=== PATIENT | female | born 1990 | race Caucasian/White ===

== ENCOUNTER 2019-04-07 13:16 | Emergency (ER) | payer BC ==
--- OUTSIDE RECORDS SUMMARY | 2019-04-07 13:27 | XMS REPORT ---
:1990 [facility] Address [address] [place] [address] Dr. Tsang [address] [place] [id number] Care Team Providers Name Role Phone Unavailable Unavailable Unavailable Problems This patient has no known problems. Allergies, Adverse Reactions, Alerts This patient has no known allergies or adverse reactions. Medications This patient has no known medications.
--- NOTE | 2019-04-07 14:12 | RAD REPORT ---
EXAM DESCRIPTION: CT - Head Brain Wo Cont - 04/07/2019 2:03 pm CLINICAL HISTORY: Syncope;Headache Headache, syncope, fall with head injury. COMPARISON: HEAD BRAIN W O CONTRAST dated 08/12/2012 TECHNIQUE: All CT scans are performed using dose optimization technique as appropriate and may inclu de automated exposure control or mA/KV adjustment according to patient size. FINDINGS: No intracranial hemorrhage, hydrocephalus or extra-axial fluid collection.No areas of brai n edema or evidence of midline shift. The paranasal sinuses and mastoids are clear. The calvarium is intact. IMPRESSION: No acute intracranial abnormality.
[2019-04-07 14:46] LABS: Absolute Lymphocytes (CBC) 2.8 K/uL (0.7-4.9); Basophils % 0.8 % (0-1.3); Eosinophils % 1.4 % (0-4.4); Hematocrit 40.4 % (36.0-45.0); Lymphocytes % 32.4 % (15.3-44.8); MPV 9.3 fL (7.6-11.3); Monocytes % 6.2 % (3.3-12.3); RBC Red Blood Cell Count 6.53 M/uL (3.86-4.86)
[2019-04-07 15:01] LABS: BUN Blood Urea Nitrogen 10 mg/dL (7-18); Bicarbonate 27 mmol/L (21-32); Glucose Level 99 mg/dL (74-106); Sodium Level 140 mmol/L (136-145)
[2019-04-07] MEDS ORDERED: NA CHLORIDE 0.9% 1,000 ML ONE (15:03)
[2019-04-07] MEDS ORDERED: NA CHLORIDE 0.9% 50 ML IV ONE (15:03)
[2019-04-07] MEDS ORDERED: DIPHENHYDRAMINE 50 MG/ML VIAL ONE (15:03)
[2019-04-07] MEDS ORDERED: METOCLOPRAMIDE 10 MG/2mL INJ ONE (15:03)
[2019-04-07 15:54] LABS: Urine Blood NEGATIVE (NEG); Urine Glucose NEGATIVE (NEG); Urine Protein NEGATIVE (NEG); Urine Specific Gravity 1.025 (1.005-1.030); Urine pH 6.5 (5.0-7.0)
--- NOTE | 2019-04-07 16:20 | EDPHYS ---
Physician Documentation [facility] Name: Shana Dexter Age: 28 yrs Sex: Female : 1990 Arrival Date: 04/07/2019 Time: 13:17 Bed 6 Private MD: ED Physician Suresh Collins HPI: 04/07 13:49 This 28 yrs old Female presents to ER via Wheelchair with complaints of jr8 Passed Out Prior To Arrival. 13:49 The patient has experienced syncope, lost consciousness. Onset: The symptoms/episode jr8 began/occurred acutely, today. Duration: This was a single episode, that lasted 3 minute(s). Context: the episode(s) was witnessed, Restaurant staff, occurred at a restaurant, occurred while the patient was at rest, sitting, Just prior to the episode the patient experienced headache. Associated injury: The patient did not suffer any apparent associated injury. Associated signs and symptoms: Pertinent positives: dizziness, headache. Current symptoms: headache, that is mild. The patient has not experienced similar symptoms in the past. The patient has not recently seen a physician. 13:49 Patient with history of migraines in past but is able to abort them with OTC jr8 medication. Stated that this one will not go away and while at Restaurant had syncopal episode . 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 - Social history:: Smoking status: Patient/guardian denies using tobacco. - Ebola Screening: : No symptoms or risks identified at this time. ROS: 13:49 Eyes: Negative for injury, pain, redness, and discharge, ENT: Negative for injury, jr8 pain, and discharge, Neck: Negative for injury, pain, and swelling, Cardiovascular: Negative for chest pain, palpitations, and edema, Respiratory: Negative for shortness of breath, cough, wheezing, and pleuritic chest pain, Abdomen/GI: Negative for abdominal pain, nausea, vomiting, diarrhea, and constipation, Back: Negative for injury and pain, MS/Extremity: Negative for injury and deformity, Skin: Negative for injury, rash, and discoloration. 13:49 Neuro: Positive for dizziness, syncope. Exam: 13:49 Eyes: Pupils equal round and reactive to light, extra-ocular motions intact. Lids and jr8 lashes normal. Conjunctiva and sclera are non-icteric and not injected. Cornea within normal limits. Periorbital areas with no swelling, redness, or edema. ENT: Nares patent. No nasal discharge, no septal abnormalities noted. Tympanic membranes are normal and external auditory canals are clear. Oropharynx with no redness, swelling, or masses, exudates, or evidence of obstruction, uvula midline. Mucous membranes moist. Neck: Trachea midline, no thyromegaly or masses palpated, and no cervical lymphadenopathy. Supple, full range of motion without nuchal rigidity, or vertebral point tenderness. No Meningismus. Cardiovascular: Regular rate and rhythm with a normal S1 and S2. No gallops, murmurs, or rubs. Normal PMI, no JVD. No pulse deficits. Respiratory: Lungs have equal breath sounds bilaterally, clear to auscultation and percussion. No rales, rhonchi or wheezes noted. No increased work of breathing, no retractions or nasal flaring. Abdomen/GI: Soft, non-tender, with normal bowel sounds. No distension or tympany. No guarding or rebound. No evidence of tenderness throughout. Back: No spinal tenderness. No costovertebral tenderness. Full range of motion. Skin: Warm, dry with normal turgor. Normal color with no rashes, no lesions, and no evidence of cellulitis. MS/ Extremity: Pulses equal, no cyanosis. Neurovascular intact. Full, normal range of motion. Neuro: Awake and alert, GCS 15, oriented to person, place, time, and situation. Cranial nerves II-XII grossly intact. Motor strength 5/5 in all extremities. Sensory grossly intact. Cerebellar exam normal. Normal gait. Vital Signs: 13:25 BP 133 / 88; Pulse 83; Resp 20; Temp 98.3; Pulse Ox 100% on R/A; Weight 101.15 kg; aj Height 5 ft. 4 in. (162.56 cm); 15:27 BP 138 / 98; Pulse 87; Resp 18; Pulse Ox 98% on R/A; ph 16:46 BP 127 / 86; Pulse 81; Resp 18; Temp 97.9; Pulse Ox 99% on R/A; Pain 4/10; ph 13:25 Body Mass Index 38.28 (101.15 kg, 162.56 cm) aj MDM: 13:32 Patient medically screened. [facility] 16:19 Data reviewed: vital signs, nurses notes, lab test result(s), radiologic studies, CT jr8 scan. Data interpreted: Pulse oximetry: on room air is 98 %. Interpretation: normal. Counseling: I had a detailed discussion with the patient and/or guardian regarding: the historical points, exam findings, and any diagnostic results supporting the discharge/admit diagnosis, lab results, radiology results, the need for outpatient follow up, a family practitioner, a neurologist, to return to the emergency department if symptoms worsen or persist or if there are any questions or concerns that arise at home. Response to treatment: the patient's symptoms have markedly improved after treatment, patient is well hydrated. 04/07 13:46 Order name: CBC with Diff; Complete Time: 16:46 8 04/07 13:46 Order name: Basic Metabolic Panel; Complete Time: 15:09 8 04/07 13:46 Order name: CT Head Brain wo Cont; Complete Time: 14:27 8 04/07 15:03 Order name: CBC Smear Scan; Complete Time: 16:46 EDMS 04/07 15:51 Order name: Urine Dipstick--Ancillary (enter results); Complete Time: 15:57 ms 04/07 15:51 Order name: Urine --Ancillary (enter results); Complete Time: 15:57 ms 04/07 13:46 Order name: EKG - Nurse/Tech; Complete Time: 15:07 8 04/07 13:46 Order name: EKG; Complete Time: 13:48 8 04/07 13:46 Order name: Urine Test (obtain specimen); Complete Time: 16:50 8 04/07 13:46 Order name: Urine Dipstick-Ancillary (obtain specimen); Complete Time: 16:50 [facility] 04/07 13:46 Order name: IV; Complete Time: 14:44 jr8 Administered Medications: 15:00 Drug: NS 0.9% 1000 ml Route: IV; Rate: 1000 ml; Site: right antecubital; ph 16:50 Follow up: Response: No adverse reaction; IV Status: Completed infusion ph 15:00 Drug: Benadryl 25 mg Route: IVP; Site: right antecubital; ph 16:52 Follow up: Response: No adverse reaction ph 15:02 Drug: Reglan 10 mg {Note: mixed in 50cc NS.} Route: IVP; Site: right antecubital; ph 16:53 Follow up: Response: No adverse reaction ph Disposition: 04/08 07:22 Co-signature as Attending Physician, Suresh Collins MD I agree with the assessment and kdr plan of care. Disposition: 04/07/19 16:20 Discharged to Home. Impression: Migraine. - Condition is Stable. - Discharge Instructions: Migraine Headache. - Medication Reconciliation Form, Thank You Letter, Antibiotic Education, Prescription Opioid Use, Work release form form. - Follow up: Private Physician; When: 2 - 3 days; Reason: Recheck today's complaints, Continuance of care, Re-evaluation by your physician. - Problem is new. - Symptoms have improved. Signatures: Dispatcher [employer] EDMS Shana Mims RN RN Suresh Wesley MD MD kdr Roszak, Josh, PA PA jr8 Génesis Conti RN RN ph Corrections: (The following items were deleted from the chart) 04/07 16:53 16:20 04/07/2019 16:20 Discharged to Home. Impression: Migraine. Condition is Stable. ph Forms are Medication Reconciliation Form, Thank You Letter, Antibiotic Education, Prescription Opioid Use. Follow up: Private Physician; When: 2 - 3 days; Reason: Recheck today's complaints, Continuance of care, Re-evaluation by your physician. Problem is new. Symptoms have improved. jr8
--- NOTE | 2019-04-07 16:20 | ER ---
Nurse's Notes [facility] Name: Shana Dexter Age: 28 yrs Sex: Female : 1990 Arrival Date: 04/07/2019 Time: 13:17 Bed 6 Private MD: Diagnosis: Migraine Presentation: 04/07 13:24 Presenting complaint: Patient states: "I passed out at [employer] while waiting for my aj food today at lunch. I also have a headache." Patient reports she sat down and had a syncopal episode lasting 3 or 4 minutes but maintained the ability to keep her head up. Transition of care: patient was not received from another setting of care. Onset of symptoms was April 07, 2019. Risk Assessment: Do you want to hurt yourself or someone else? Patient reports no desire to harm self or others. Initial Sepsis Screen: Does the patient meet any 2 criteria? No. Patient's initial sepsis screen is negative. Does the patient have a suspected source of infection? No. Patient's initial sepsis screen is negative. Care prior to arrival: None. 13:24 Method Of Arrival: Wheelchair 13:24 Acuity: NEEL 3 aj Triage Assessment: 13:25 General: Appears in no apparent distress. comfortable, Behavior is calm, cooperative, aj appropriate for age. Pain: Complains of pain in face. Neuro: Level of Consciousness is awake, alert, obeys commands, Oriented to person, place, time, situation, Appropriate for age Reports headache. Derm: Skin is intact, is healthy with good turgor, Skin is pink, warm \\T\\ dry. normal. 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 - Social history:: Smoking status: Patient/guardian denies using tobacco. - Ebola Screening: : No symptoms or risks identified at this time. Screenin:21 Abuse screen: Denies threats or abuse. Denies injuries from another. Nutritional ph screening: No deficits noted. Tuberculosis screening: No symptoms or risk factors identified. Fall Risk No fall in past 12 months (0 pts). No secondary diagnosis (0 pts). IV access (20 points). Ambulatory Aid- None/Bed Rest/Nurse Assist (0 pts). Gait- Weak (10 pts.). Mental Status- Oriented to own ability (0 pts). Total [place] Fall Scale indicates Low Risk Score (25-44 pts). Fall prevention measures have been instituted. Side Rails Up X 2 Placed close to Nursing Station Frequent Obs/Assesments occuring Family Present and informed to notify staff if they need to leave bedside As available Patient and Family Educated on Fall Prevention Program and strategies. Assessment: 14:00 General: Appears in no apparent distress. comfortable, obese, well groomed, Behavior is ph calm, cooperative, appropriate for age, Denies fever, feeling ill. Pain: Complains of pain in forehead and occipital area. Neuro: Level of Consciousness is awake, alert, obeys commands, Oriented to person, place, time, situation, Tacking Machine Operator are equal bilaterally Moves all extremities. Full function Speech is normal, Facial symmetry appears normal, Pupils are PERRLA, Reports blurred vision dizziness, headache frontal area, occipital area, weakness. Cardiovascular: Capillary refill < 3 seconds in bilateral fingers Patient's skin is warm and dry. Respiratory: Airway is patent Respiratory effort is even, unlabored, Respiratory pattern is regular, symmetrical. GI: Patient currently denies abdominal pain, nausea, vomiting. Derm: Skin is intact, is healthy with good turgor, Skin is pink, warm \\T\\ dry. Musculoskeletal: Circulation, motion, and sensation intact. Range of motion: intact in all extremities. 15:32 Reassessment: Patient appears in no apparent distress at this time. Patient and/or ph family updated on plan of care and expected duration. Pain level reassessed. Patient is alert, oriented x 3, equal unlabored respirations, skin warm/dry/pink. Pt resting quietly with sunglasses on and lights off, mother at bedside, VSS. 16:46 Reassessment: Patient appears in no apparent distress at this time. Patient and/or ph family updated on plan of care and expected duration. Pain level reassessed. Patient is alert, oriented x 3, equal unlabored respirations, skin warm/dry/pink. Pt d/c home w/ family Patient states feeling better. Patient states symptoms have improved. Vital Signs: 13:25 BP 133 / 88; Pulse 83; Resp 20; Temp 98.3; Pulse Ox 100% on R/A; Weight 101.15 kg; aj Height 5 ft. 4 in. (162.56 cm); 15:27 BP 138 / 98; Pulse 87; Resp 18; Pulse Ox 98% on R/A; ph 16:46 BP 127 / 86; Pulse 81; Resp 18; Temp 97.9; Pulse Ox 99% on R/A; Pain 4/10; ph 13:25 Body Mass Index 38.28 (101.15 kg, 162.56 cm) aj ED Course: 13:17 Patient arrived in ED. as 13:25 Triage completed. aj 13:25 Arm band placed on left wrist. Patient placed in an exam room. aj 13:27 Génesis Conti, RN is Primary Nurse. ph 13:31 Lucio Sewell PA is PHCP. jr8 13:31 Suresh Collins MD is Attending Physician. jr8 14:04 CT Head Brain wo Cont In Process Unspecified. EDMS 14:07 EKG done, by bench lay out technician. reviewed by Lucio QUIROZ. sm3 14:21 Patient has correct armband on for positive identification. Placed in gown. Bed in low ph position. Call light in reach. Side rails up X2. Pulse ox on. NIBP on. Door closed. Noise minimized. Warm blanket given. Head of bed elevated. 14:43 Inserted saline lock: 20 gauge in right antecubital area, using aseptic technique. ph Blood collected. 15:33 No provider procedures requiring assistance completed. ph 16:47 IV discontinued, intact, bleeding controlled, No redness/swelling at site. Pressure ph dressing applied. Administered Medications: 15:00 Drug: NS 0.9% 1000 ml Route: IV; Rate: 1000 ml; Site: right antecubital; ph 16:50 Follow up: Response: No adverse reaction; IV Status: Completed infusion ph 15:00 Drug: Benadryl 25 mg Route: IVP; Site: right antecubital; ph 16:52 Follow up: Response: No adverse reaction ph 15:02 Drug: Reglan 10 mg {Note: mixed in 50cc NS.} Route: IVP; Site: right antecubital; ph 16:53 Follow up: Response: No adverse reaction ph Outcome: 16:20 Discharge ordered by . jr8 16:47 Discharged to home ambulatory, with family. ph 16:47 Condition: improved 16:47 Discharge instructions given to patient, Instructed on discharge instructions, follow up and referral plans. Demonstrated understanding of instructions, follow-up care. 16:53 Patient left the ED. ph Signatures: Dispatcher [employer] Shana Lindsey RN RN aj Martinez, Amelia as Roszak, Josh, PA PA jr8 Génesis Conti RN RN ph Montes, Shakira 3
--- NOTE | 2019-04-07 16:22 | EKG ---
Test Date: 2019-04-07 Test Time: 13:55:47 Showcase Trimmer: SANGEETA MEASUREMENT RESULTS: Intervals: Rate: 79 MN: 126 QRSD: 78 QT: 378 QTc: 433 [place]: P: 13 MN: 126 QRS: 22 T: 7 INTERPRETIVE STATEMENTS: Normal sinus rhythm Normal ECG No previous ECG available for comparison Electronically Signed On 04-07-19 16:21:19 CDT by Crow Medeiros
[2019-04-07 16:43] LABS: Anisocytosis 1+; Blood Morphology Comment NOTED (NOT SEEN); Hypochromasia 1+; Macrocytosis 1+; Ovalocytes 1+; Platelet Estimate ADEQ; Urine White Blood Cell Casts OK
[2019-04-07 18:45] VITALS: BP 127/86; TEMP 97.9; O2SAT 99
== END 2019-04-07 16:53 | disposition home or self-care (01) ==
LOC: ER 13:16
DX: G43.909 Migraine, unspecified, not intractable, without status migrainosus (principal); Z88.0 Allergy status to penicillin
CPT/HCPCS: 36415; 70450; 80048; 81003; 81025; 85025; 93005; 96361; 96374; 96375; 99284; J2765; J7030

== ENCOUNTER 2019-06-17 10:00 | Day surgery (SDC) | payer BC ==
--- OUTSIDE RECORDS SUMMARY | 2019-06-17 10:40 | XMS REPORT ---
:1990 [facility] [address] [place] [address] Dr. Tsang [address] [place] [address] Care Team Providers Name Role Phone Unavailable Unavailable Unavailable Problems This patient has no known problems. Allergies, Adverse Reactions, Alerts This patient has no known allergies or adverse reactions. Medications This patient has no known medications.
[2019-06-17] MEDS ORDERED: D5 0.45 NS 1,000 ML IV SCH (11:00)
[2019-06-17 13:20] VITALS: O2SAT 99; BMI 37.9
[2019-06-17 13:24] VITALS: BP 135/90; TEMP 98
== END 2019-06-17 11:52 | disposition home or self-care (01) ==
LOC: DS 10:00
PROVIDERS: ATTEND Internal Medicine
DX: G43.901 Migraine, unspecified, not intractable, with status migrainosus (principal)
CPT/HCPCS: 96365; 96366

== ENCOUNTER 2022-07-19 08:47 | Emergency (ER) | payer BC, OTHER ==
--- OUTSIDE RECORDS SUMMARY | 2022-07-19 08:54 | XMS REPORT | Continuity of Care Document ---
:1990 Author Organization [facility] t Address [address] [place] [address] Care Team Providers Name Role Phone Vi Jeong Primary Care Physician Vi Jeong Attending Clinician Unavailable Carlos Sam Attending Clinician Unavailable Julito Gilmore Attending Clinician Unavailable Meg Weir CNM Attending Clinician Unavailable Leti Leija CNM Attending Clinician Unavailable JARAD Attending Clinician Unavailable Doctor Unassigned, [place] Attending Clinician Unavailable Maggie Phillip MD Attending Clinician MAGGIE PHILLIP Attending Clinician Unavailable Simba Boyer MD Attending Clinician Lab, Adc Fam Pob I Attending Clinician Unavailable Gisel Dang PA-C Attending Clinician 2, [facility] Lab Attending Clinician Unavailable Carlos Sam Admitting Clinician Unavailable Meg Weir CNJose Admitting Clinician Unavailable Leti Leija CNM Admitting Clinician Unavailable JARAD Admitting Clinician Unavailable Payers Payer Name Policy Type Policy Number Effective Date Expiration Date S arie [facility] - [id number] 2018 2021 00:00:0 0 OUT OF STATE 00:00:00 Problems Condition Condition Condition Status Onset Resolution Last Treating Co mments Source Name Details Category Date Date Treatment Clinician Date Menorrhagi Menorrhagi Disease Active U nivers a with a with 2-22 [place] irregular irregular [place] Decreased Decreased Disease Active Uni vers range of range of 8-17 [place]y of motion of motion of 00:[place] right right 00 Medical wrist wrist Branch Decreased Decreased Disease Active Uni vers range of range of 8-17 ity of motion of motion of 00:[place] finger of finger of 00 Medi vanessa right hand right hand Br anch Decreased Decreased Disease Active Uni vers activities activities 8-17 it y of of daily of daily 00:00: [place] living living 00 Medical (ADL) (ADL) Branch Complex Complex Disease Active Univers tear of tear of 8-09 ity of triangular triangular [place] fibrocarti fibrocarti 00 Me dical sergio of sergio of Branch wrist wrist Obesity Obesity Disease Active Univers (BMI (BMI 5-26 ity of 30-39.9) 30-39.9) 00:00: Medical Branch Abnormal Abnormal Disease Active Unive rs liver liver 5-20 ity of enzymes enzymes 00:00: Medical Branch Asymptomat Asymptomat Disease Active U nivers ic ic 5-05 ity of hypertensi hypertensi [place] ve urgency ve urgency 00 Me dical Branch Anxiety, Anxiety, Disease Active Unive rs generalize generalize 5-05 it y of d d 00:00: Medical Branch S/P S/P Disease Active Univers cholecyste cholecyste 5-05 it y of ctomy ctomy 00:00: Medical Branch Abnormal Abnormal Disease Active Unive rs menstrual menstrual 5-05 ity of cycle cycle 00:00: Medical Branch Vaginal Vaginal Disease Active Univers discharge discharge 5-05 ity of 00:00: Medical Branch Abnormal Abnormal Disease Active Unive rs uterine uterine 5-05 ity of bleeding bleeding 00:00: [place] 00 Medical Branch PALAFOX PALAFOX Disease Active Univers (nonalcoho (nonalcoho 5-05 it y of lic lic 00:00: [place] steatohepa steatohepa 00 Me dical titis) titis) Branch Chronic Chronic Disease Active Univers wrist wrist 5-05 ity of pain, pain, 00:00: [place] right right 00 Medical Branch Pre-eclamp Pre-eclamp Disease Active U nivers soco, soco, 5-05 ity of antepartum antepartum 00:00: [place] Chronic Chronic Disease Active Univers wrist wrist 5-05 ity of pain, pain, 00:00: [place] right right 00 Medical Branch Morbid Morbid Disease Active Univers obesity obesity 08 ity of 00:00: [place] 00 Medical Branch High-risk High-risk Disease Active Uni vers 08 ity of in first in first 00:00: [place] trimester trimester 00 [facility] Branch Elevated Elevated Disease Active Unive rs BP without BP without 08 it y of diagnosis diagnosis 00:00: [place] of of Medical hypertensi hypertensi Br anch on on Allergies, Adverse Reactions, Alerts Allergy Allergy Status Severity Reaction(s) Onset Inactive Treating Comm ents Source Name Type Date Date Clinician Penicill DA Active SV [facility] ins 1-13 Clear 00:00: [place] 00 [facility] Penicill DA Active SV rash [facility] ins 1-13 Clear 00:00: [place] 00 [facility] Amoxicil Propensi Active Swelling 2019-0 Univ ers jeannie ty to 08 ity of adverse 00:00: [place] reaction 00 Medical s Branch Penicill Drug Active Swelling 2019-0 Univer s in Allergy 08 ity of 00:00: [place] 00 Medical Branch AMOXICIL DRUG Active Rash 2020-0 Univers JEANNIE INGREDI 08 ity of 00:00: [place] 00 Medical Branch PENICILL DRUG Active Rash 2020-0 Univers IN INGREDI 08 ity of 00:00: [place] 00 Medical Branch Social History Social Habit Start Date Stop Date Quantity Comments Source Exposure to Not sure [facility] SARS-CoV-2 [place] Medical (event) Branch ASSERTION [facility] Alcohol intake 2021-12-11 2021-12-11 Ex-drinker [facility] 00:00:00 00:00:00 (finding) [facility] Tobacco use and 2020-04-26 2020-04-26 Smokeless tobacco Un iversity of exposure 00:00:00 00:00:00 non-user [facility] Sex Ass[birth year] At [birth year] Universit y of 00:00:00 00:00:00 [facility] Smoking Status Start Date Stop Date Source Never smoked tobacco [facility] Medications Ordered Filled Start Stop Current Ordering Indication Dosage Frequency Signature Comments Components Source Medication Medication Date Date Medication? Clinician (SIG) Name Name Estradiol Yes [id number] 1{tbl} Take 1 U nivers Valerate-Di 2-22 tablet by ity of enogest 00:00: mouth [place] (NATAZIA) 3 00 daily. Medica l mg/2 mg-2 Branch mg/ 2 mg-3 mg/1 mg Tab Estradiol Yes [id number] 1{tbl} Take 1 U nivers Valerate-Di 2-22 tablet by ity of enogest 00:00: mouth [place] (NATAZIA) 3 00 daily. Medica l mg/2 mg-2 Branch mg/ 2 mg-3 mg/1 mg Tab Estradiol Yes [id number] 1{tbl} Take 1 U nivers Valerate-Di 2-22 tablet by ity of enogest 00:00: mouth [place] (NATAZIA) 3 00 daily. Medica l mg/2 mg-2 Branch mg/ 2 mg-3 mg/1 mg Tab Estradiol Yes [id number] 1{tbl} Take 1 U nivers Valerate-Di 2-22 tablet by ity of enogest 00:00: mouth [place] (NATAZIA) 3 00 daily. Medica l mg/2 mg-2 Branch mg/ 2 mg-3 mg/1 mg Tab cetirizine 2020-10 Yes [id number] 10mg Take 1 Univers (ZYRTEC) 10 2-27 tablet by ity of mg tablet 00:00: mouth [place] 00 daily. Medical Branch benzonatate 2020-10 Yes [id number] 200mg Take 2 Univers 100 mg 2-27 capsules ity of capsule 00:00: [place] mouth 2 [place] 00 (two) Medical times Branch daily as needed for Cough. guaiFENesin 2020-10 Yes [id number] 400mg Take 1 Univers 400 mg 2-27 tablet by ity of tablet 00:00: mouth [place] 00 every 4 Medical (four) Branch hours as needed for Cough. albuterol 2020-10 Yes [id number] 2{puff} Inhale 2 Univers 90 2-27 Puffs ity of mcg/actuati 00:00: every 6 [place] on inhaler 00 (six) Medical hours as Branch needed for Shortness of Breath. azelastine 2020-10 Yes [id number] 1{spray Use 1 Univers 137 mcg 2-27 } [place] in ity of (0.1 %) 00:00: each [place] nasal spray 00 nostril 2 Med ical (two) Branch times daily. Use in each nostril as directed fluticasone 2020-10 Yes [id number] 1{spray Use 1 Univers propionate 2-27 } [place] in ity o f 50 00:00: each [place] mcg/actuati 00 nostril Medic al on nasal daily. Branch spray cetirizine 2020-10 Yes [id number] 10mg Take 1 Univers (ZYRTEC) 10 2-27 tablet by ity of mg tablet 00:00: mouth [place] 00 daily. Medical Branch benzonatate 2020-10 Yes [id number] 200mg Take 2 Univers 100 mg 2-27 capsules ity of capsule 00:00: [place] mouth 2 [place] 00 (two) Medical times Branch daily as needed for Cough. guaiFENesin 2020-10 Yes [id number] 400mg Take 1 Univers 400 mg 2-27 tablet by ity of tablet 00:00: mouth [place] 00 every 4 Medical (four) Branch hours as needed for Cough. albuterol 2020-10 Yes [id number] 2{puff} Inhale 2 Univers 90 2-27 Puffs ity of mcg/actuati 00:00: every 6 [place] on inhaler 00 (six) Medical hours as Branch needed for Shortness of Breath. azelastine 2020-10 Yes [id number] 1{spray Use 1 Univers 137 mcg 2-27 } [place] in ity of (0.1 %) 00:00: each [place] nasal spray 00 nostril 2 Med ical (two) Branch times daily. Use in each nostril as directed fluticasone 2020-10 Yes [id number] 1{spray Use 1 Univers propionate 2-27 } [place] in ity o f 50 00:00: each [place] mcg/actuati 00 nostril Medic al on nasal daily. Branch spray cetirizine 2020-10 Yes [id number] 10mg Take 1 Univers (ZYRTEC) 10 2-27 tablet by ity of mg tablet 00:00: mouth [place] 00 daily. Medical Branch benzonatate 2020-10 Yes [id number] 200mg Take 2 Univers 100 mg 2-27 capsules ity of capsule 00:00: [place] mouth 2 [place] 00 (two) Medical times Branch daily as needed for Cough. guaiFENesin 2020-10 Yes [id number] 400mg Take 1 Univers 400 mg 2-27 tablet by ity of tablet 00:00: mouth [place] 00 every 4 Medical (four) Branch hours as needed for Cough. albuterol 2020-10 Yes [id number] 2{puff} Inhale 2 Univers 90 2-27 Puffs ity of mcg/actuati 00:00: every 6 [place] on inhaler 00 (six) Medical hours as Branch needed for Shortness of Breath. azelastine 2020-10 Yes [id number] 1{spray Use 1 Univers 137 mcg 2-27 } [place] in ity of (0.1 %) 00:00: each [place] nasal spray 00 nostril 2 Med ical (two) Branch times daily. Use in each nostril as directed fluticasone 2020-10 Yes [id number] 1{spray Use 1 Univers propionate 2-27 } [place] in ity o f 50 00:00: each [place] mcg/actuati 00 nostril Medic al on nasal daily. Branch spray cetirizine 2020-10 Yes [id number] 10mg Take 1 Univers (ZYRTEC) 10 2-27 tablet by ity of mg tablet 00:00: mouth [place] 00 daily. Medical Branch benzonatate 2020-10 Yes [id number] 200mg Take 2 Univers 100 mg 2-27 capsules ity of capsule 00:00: [place] mouth 2 [place] 00 (two) Medical times Branch daily as needed for Cough. guaiFENesin 2020-10 Yes [id number] 400mg Take 1 Univers 400 mg 2-27 tablet by ity of tablet 00:00: mouth [place] 00 every 4 Medical (four) Branch hours as needed for Cough. albuterol 2020-10 Yes [id number] 2{puff} Inhale 2 Univers 90 2-27 Puffs ity of mcg/actuati 00:00: every 6 [place] on inhaler 00 (six) Medical hours as Branch needed for Shortness of Breath. azelastine 2020-10 Yes [id number] 1{spray Use 1 Univers 137 mcg 2-27 } [place] in ity of (0.1 %) 00:00: each [place] nasal spray 00 nostril 2 Med ical (two) Branch times daily. Use in each nostril as directed fluticasone 2020-10 Yes [id number] 1{spray Use 1 Univers propionate 2-27 } [place] in ity o f 50 00:00: each [place] mcg/actuati 00 nostril Medic al on nasal daily. Branch spray methylPREDN 2020-10 Yes FOLLOW Univ ers ISolone 4 2-19 PACKAGE ity of mg tablets 00:00: [place]RE[place] methylPREDN 2020-10 Yes FOLLOW Univ ers ISolone 4 2-19 PACKAGE ity of mg tablets 00:00: DI[place]CTIONS [place] [facility] [place] methylPREDN 2020-10 Yes FOLLOW Univ ers ISolone 4 2-19 PACKAGE ity of mg tablets 00:00: DIRECTIONS [place] Medical Branch methylPREDN 2020-10 Yes FOLLOW [facility] ers ISolone 4 2-19 PACKAGE ity of mg tablets 00:00: DIRECTIONS [place] Medical Branch NATAZIA 3 2020-10- No [id number] 1{tbl} TAKE 1 Univers mg/2 mg-2 -24 - TABLET BY ity of mg/ 2 mg-3 00:00: 00:00 MOUTH [place] mg/1 mg Tab 00 :00 DAILY Medical Branch Diclofenac Yes [id number] Apply to Univers Sodium 8-06 [id number] area(s) 4 ity of (VOLTAREN) 00:00: (four) [place] 1 % gel 00 times Medical daily. Branch Apply 4 g qid hydrOXYzine Yes [id number] 50mg Take 2 Univers 25 mg 8-06 tablets by ity of tablet 00:00: mouth [place] 00 every 8 Medical (eight) Branch hours as needed for Itching or Anxiety. lisinopriL- 2020-0 Yes [id number] 1{tbl} Take 1 Univers hydrochloro 8-06 tablet by ity of thiazide 00:00: mouth [place] 10-12.5 mg 00 daily. Medical per tablet Branch Diclofenac 2020-0 Yes [id number] Apply to Univers Sodium 8-06 [id number] area(s) 4 ity of (VOLTAREN) 00:00: (four) [place] 1 % gel 00 times Medical daily. Branch Apply 4 g qid hydrOXYzine 2020-0 Yes [id number] 50mg Take 2 Univers 25 mg 8-06 tablets by ity of tablet 00:00: mouth [place] 00 every 8 Medical (eight) Branch hours as needed for Itching or Anxiety. lisinopriL- 2020-0 Yes [id number] 1{tbl} Take 1 Univers hydrochloro 8-06 tablet by ity of thiazide 00:00: mouth [place] 10-12.5 mg 00 daily. Medical per tablet Branch Diclofenac 2020-0 Yes [id number] Apply to Univers Sodium 8-06 [id number] area(s) 4 ity of (VOLTAREN) 00:00: (four) [place] 1 % gel 00 times Medical daily. Branch Apply 4 g qid hydrOXYzine 2020-0 Yes [id number] 50mg Take 2 Univers 25 mg 8-06 tablets by ity of tablet 00:00: mouth [place] 00 every 8 Medical (eight) Branch hours as needed for Itching or Anxiety. lisinopriL- 2020-0 Yes [id number] 1{tbl} Take 1 Univers hydrochloro 8-06 tablet by ity of thiazide 00:00: mouth [place] 10-12.5 mg 00 daily. Medical per tablet Branch Diclofenac 2020-0 Yes [id number] Apply to Univers Sodium 8-06 [id number] area(s) 4 ity of (VOLTAREN) 00:00: (four) [place] 1 % gel 00 times Medical daily. Branch Apply 4 g qid hydrOXYzine 1-0 Yes [id number] 50mg Take 2 Univers 25 mg 8-06 tablets by ity of tablet 00:00: mouth [place] 00 every 8 Medical (eight) Branch hours as needed for Itching or Anxiety. lisinopriL- 2021-0 Yes [id number] 1{tbl} Take 1 Univers hydrochloro 8-06 tablet by ity of thiazide 00:00: mouth [place] 10-12.5 mg 00 daily. Medical per tablet Branch NIFEdipine 2020- Yes [id number] 30mg Take 1 Univers ER 30 mg 5-05 tablet by ity of tablet 00:00: mouth [place] 00 daily. Medical Branch NIFEdipine 2020- Yes [id number] 30mg Take 1 Univers ER 30 mg 5-05 tablet by ity of tablet 00:00: mouth [place] 00 daily. Medical Branch NIFEdipine 2020-0 Yes [id number] 30mg Take 1 Univers ER 30 mg 5-05 tablet by ity of tablet 00:00: mouth [place] 00 daily. Medical Branch NIFEdipine Yes [id number] 30mg Take 1 Univers ER 30 mg 5-05 tablet by ity of tablet 00:00: mouth [place] 00 daily. [facility] Branch Immunizations Ordered Filled Immunization Date Status Comments [facility] e Immunization Name Name SARS-COV-2 COVID-19 2021-01-22 Completed Unive rsity of ANTHONY/J&J VACCINE 00:00:00 [facility] SARS-COV-2 COVID-19 2021-01-22 Completed Unive rsity of ANTHONY/J&J VACCINE 00:00:00 [facility] SARS-COV-2 COVID-19 2021-01-22 Completed Unive rsity of ANTHONY/J&J VACCINE 00:00:00 [facility] SARS-COV-2 COVID-19 2021-01-22 Completed Unive rsity of ANTHONY/J&J VACCINE 00:00:00 [facility] SARS-COV-2 COVID-19 2021-01-01 Completed Unive rsity of ANTHONY/J&J VACCINE 00:00:00 [facility] SARS-COV-2 COVID-19 2021-01-01 Completed Unive rsity of ANTHONY/J&J VACCINE 00:00:00 [facility] SARS-COV-2 COVID-19 2021-01-01 Completed Unive rsity of ANTHONY/J&J VACCINE 00:00:00 [facility] SARS-COV-2 COVID-19 2021-01-01 Completed Unive rsity of ANTHONY/J&J VACCINE 00:00:00 [facility] TDAP 2019 Completed University of 00:00:00 [place] [facility] TDAP 2019 Completed University of 00:00:00 [place] [facility] TDAP 2019 Completed University of 00:00:00 [place] [facility] TDAP 2019 Completed University of 00:00:00 [place] [facility] TDAP 2019 Completed University of 00:00:00 [place] [facility] TDAP 2019 Completed University of 00:00:00 [facility] Vital Signs Vital Name Observation Time Observation Value Comments Source Systolic blood 2021-12-11 19:37:00 118 mm[Hg] Univer sity of pressure [facility] Branch Diastolic blood 2021-12-11 19:37:00 85 mm[Hg] Unive rsity of pressure [facility] Branch Heart rate 2021-12-11 19:37:00 101 /min Universi ty of [facility] Body temperature 2021-12-11 19:37:00 36.89 Rad[facility] Respiratory rate 2021-12-11 19:37:00 18 /min [facility] ersity of [facility] Body height 2021-12-11 19:37:00 162.6 cm Universi ty of [place] [facility] Body weight 2021-12-11 19:37:00 102.513 kg Universi ty of [place] [facility] BMI 2021-12-11 19:37:00 38.79 kg/m2 Universi ty of [place] [facility] Systolic blood 2021-02-09 15:03:00 140 mm[Hg] Univer sity of pressure [facility] Branch Diastolic blood 2021-02-09 15:03:00 94 mm[Hg] Unive rsity of pressure [facility] Branch Heart rate 2021-02-09 14:57:00 96 /min Universi ty of [place] [facility] Body height 2021-02-09 14:57:00 162.6 cm Universi ty of [place] [facility] Body weight 2021-02-09 14:57:00 99.791 kg Universi ty of [facility] Branch BMI 2021-02-09 14:57:00 37.76 kg/m2 Universi ty of [facility] Branch Procedures Procedure Date / Time Performing Clinician Source Performed AUTHORIZATION FOR 2022-04-17 05:01:00 Doctor Unassigned, No Univ [facility] RELEASE OF PHI Name Medical Branch AUTHORIZATION FOR 2022-03-26 05:01:00 [facility] Name Medical Branch CONSENT FOR 2021-12-11 06:01:00 [facility]assigned, No [facility] Branch [id number] 2020-11-07 00:00:00 GELDA [facility] [id number] 2020-11-02 [id number] 2020-11-02 00:00:00 [facility] [id number] 2020-11-02 00:00:00 [facility] [id number] 2020-11-02 00:00:00 [facility] [id number] 2020-11-02 00:00:00 [facility] [id number] 2020-11-02 00:00:00 [facility] Plan of Care Planned Activity Planned Date Details Comments Source Future Scheduled 2029 DTaP,Tdap,and Td Univers ity [facility] Test 00:00:00 Vaccines (2 - Td) Medical Br anch [code = DTaP,Tdap,and Td Vaccines (2 - Td)] Future Scheduled 2029 DTaP,Tdap,and Td Univers ity [facility] Test 00:00:00 Vaccines (2 - Td) Medical Br anch [code = DTaP,Tdap,and Td Vaccines (2 - Td)] Future Scheduled 2023-04-26 Screening for University [facility] Test 00:00:00 malignant neoplasm Medical B ranch of cervix (procedure) [code = 866929013] Future Scheduled 2023-04-26 Screening for University [facility] Test 00:00:00 malignant neoplasm Medical B ranch of cervix (procedure) [code = 795311481] Future Scheduled 2022-02-21 Depression screening Uni versity [facility] Test 00:00:00 (procedure) [code = Medical Branch [id number]] Future Scheduled 2022-02-21 Depression screening Uni versity [facility] Test 00:00:00 (procedure) [code = Medical Branch [id number]] Future Scheduled 2021-06-20 INFLUENZA VACCINE Univer sity [facility] Test 00:00:00 (Season Ended) [code Medical Branch = INFLUENZA VACCINE (Season Ended)] Future Scheduled 2021-06-20 INFLUENZA VACCINE [facility] Test 00:00:00 (Season Ended) [code Medical Branch = INFLUENZA VACCINE (Season Ended)] Future Scheduled 2008 [facility]00 (COVID-19) Vaccine Medical B ranch (1) [code = SARS-CoV-2 (COVID-19) Vaccine (1)] Future Scheduled 2008 [facility] 00:00:00 (COVID-19) Vaccine Medical B ranch (1) [code = SARS-CoV-2 (COVID-19) Vaccine (1)] Encounters Start End Encounter Admission Attending Care Care Encounter Source Date/Time Date/Time Type Type Clinicians Facility Department ID 2022-05-27 Outpatient Winn, STLMLC STLMLC [id number] Common 08:25:01 [place] [id number] [facility] 2022-04-29 Outpatient Winn, STLMLC STLMLC [id number] Common 08:32:00 [place] [id number] [facility] 2022-03-27 Outpatient Winn, STLMLC STLMLC [id number] Common 13:39:00 [place] [id number] [facility] 2022-01-17 Outpatient Winn, STLMLC STLMLC [id number] Common 15:52:00 Vi [facility] 2021-11-14 Outpatient Winn, STLMLC STLMLC [id number] Common 11:24:25 [place] [id number] [facility] 2020-11-01 Inpatient EM Flaco, [facility] LD [id number] [facility] 16:40:00 Carlos 58 [facility] 2020-10-20 Inpatient CHRIS Gilmore [facility] CL45 [id number] [facility] 00:11:00 Brockmashiraz 13 [facility] 2020-10-02 Inpatient [place], [facility] MARIELOS [id number] H[facility] 11:38:00 Meg 22 [facility] 2020-09-22 Inpatient CHRIS Leija [facility] CL45 [id number] [facility] 09:52:00 Leti 02 [facility] 2022-04-30 2022-04-30 Outpatient JARAD MARTINI [facility] [id number] [place] 11:48:00 11:48:00 0712 da [facility] 2022-04-17 2022-04-17 Orders Doctor TORREZ [id number] Univers 00:00:00 00:00:00 Only Unassigned, KITTY [id number] ity of [place] [facility] [id number] [place] [phone] [address] 2022-03-26 2022-03-26 Orders Doctor SHAN [id number] Univers 00:00:00 00:00:00 Only Unassigned, KITTY [id number] ity of [place] [facility] [id number] [place] as [phone] [address] 2021-12-11 2021-12-11 Office Adum, [facility] [id number] Univers 13:30:00 14:27:30 Visit Maggie MUNOZ [id number] ity [facility] [id number] [place] [phone] [address] 2021-12-11 2021-12-11 Outpatient R ADUM, [facility] [id number] Univers 13:30:00 14:27:30 MAGGIE dorantes of [facility] 2021-12-11 2021-12-11 Orders Doctor TORREZ [id number] Univers 00:00:00 00:00:00 Only Unassigned, KITTY [id number] ity of [place] [facility] [id number] Cal[place] as [phone] [address] 2021-10-31 2021-10-31 Outpatient R [facility] [id number] Univers 13:20:00 13:20:00 ity of [facility] 2020-11-02 2020-11-02 Outpatient SHAWNEE Sam LABO [id number] [facility] 15:01:00 15:01:00 Carlos 67 [facility] 2020-10-02 2020-10-02 Outpatient [place], MEHNAZCL LABO [id number] [facility] 14:56:00 14:56:00 Meg Cast [facility] 2020-09-08 2020-09-08 Outpatient CHRIS Leija, [facility] CL45 [id number] [facility] 12:26:00 12:26:00 Leti 70 [facility] 2020-06-03 2020-06-03 Orders Doctor SHAN [id number] 00:00:00 00:00:00 Only Unassigned, KITTY [id number] [place] [facility] [id number] [id number] 009 2020-05-10 2020-05-10 Orders Doctor SHAN [id number] 00:00:00 00:00:00 Only Unassigned, KITTY [id number] [place] [facility] 4.2.7.2.686 [id number] 009 2020-05-04 2020-05-04 Laboratory Lab, [facility] [id number] 07:05:12 07:25:12 Only Fam [facility] [id number] [place] 4.2.7.2.686 Professio [phone] nal [address] 2020-05-04 2020-05-04 Letter Doctor SHAN 1.2.840.114 [id number] 00:00:00 00:00:00 (Out) Unassigned, KITTY [id number] [place] [facility] 4.2.7.2.686 [id number] [id number] 2020-05-04 2020-05-04 Letter Doctor SHAN 1.2.840.114 [id number] 00:00:00 00:00:00 (Out) Unassigned, KITTY [id number] [place] [facility] 4.2.7.2.686 [id number] 044 2020-05-03 2020-05-03 [facility] 1.2.840.114 [id number] 00:00:00 00:00:00 Gisel Munoz [id number] [place] 4.2.7.2.686 [facility] [phone] [facility] 134 [facility] 2020-04-26 2020-04-26 Battery Installer 2, Adc Lab [facility] 1.2.840.114 [id number] 15:20:39 15:35:39 Visit Elijah [id number] [place] [id number] [facility] [phone] [facility] 353 [facility] Results Test Description Test Time Test Comments Results Result Comments Source GALLBLADDER 2020-11-08 15:56:00 Test Item Value Reference Range Interpretation Comme nts GALLBLADDER RUN DATE: (test code = 11/08/20 [facility] PAGE 1 RUN TIME: 1556 Specimen Inquiry RUN USER: INTERFACE [employer]) PATIENT: MI VASQUEZ ACCT #: [id number] LOC: DeanaPPU U #: [id number] AGE/SX: 30/F ROOM: [place]2015 RE11/01/20REG DR: Malcom Sam MD : 89 BED: A DIS: STATUS: ADM IN TLOC: SPEC #: [id number] RECD: STATUS: SHIVAM CARRILLO #: [id number] FREDIS: 11/07/20- SUBM DR: Carlos Sam MD ENTERE SP TYPE: GALLBLADD OTHR DR: Paul Bolton MD ORDERED: GROSS COPIES TO: Paul Bolton MD 3 [address] [address] [place] [id number] Carlos Sam MD [address] [place] [address] MARKERS: ABNORMAL TISSUE, GALLBLADDER PROCEDURES: GROSS (11/08/20-121) TISSUE S: GALLBLADDER, NOS CLINICAL HISTORY COLLECTION DATE: 11/07/20 FINAL DIAGNOSIS Gallbladder, valentina cystectomy: CHRONIC CHOLECYSTITIS CHOLELITHIASIS NEGATIVE FOR MALIGNANCY RRB/sm A [id number] MACROSCOPIC The specimen is received in formalin labeled with the patient's name, "gallbladder" and consists o f an intact gallbladder with a smooth nance-pink serosal surface. The specimen measures 6.0 cm in length wi th diameter up to 2.2 cm. A 1.2 cm segment of duct is present. No lymph node is identified in the neck of the gallbladder. The lumen contains green bile and a few very small fragments of brown calculus material that measure up to 0.1 cm in CONTINUED ON NEXT PAGE RUN DATE: 11/08/20 [place] - Lab PAGE 2 RUN TIME: 1556 Specimen Inquiry RUN USER: INTERFACE SPEC #: [id number] PATIENT: MI VASQUEZ #[id number] (Continued) MACROSCOPIC (Continued) diam eter. The mucosal surface is dark pink-nance and smooth. The gallbladder wall measures up to 0.15 cm in ickness. No focal lesions are seen. Director Of Rehabilitation tissue is submitted in a single cassette. GROSS PERFO RMED AT [facility] [address] [place] [phone] MICROSCOPIC All of the stains, including any controls performed, stain appropriate ly. MICROSCOPIC PERFORMED AT [facility] [address] [place] [address] [phone])[phone] PERFORMING SITE Diagnosis performed at: [facility] [address] [place] [address] Signed SIGNATURE ON FILE Daren Torre MD 11/08/20 1556 END OF REPORT CBC W/AUTO [id number] 07:18:00 Test Item Value Reference Range Interpretation Comments WHITE BLOOD CELL (test 14.6 K/mm3 4.5-12.5 H code = WBC) RED BLOOD CELL (test 5.30 mill/mm3 3.7-5.2 H code = RBC) HEMOGLOBIN (test code 10.7 gram/dL 11.5-15.5 L = HGB) HEMATOCRIT (test code 35.3 % 36.0-46.0 L = HCT) MEAN CELL VOLUME (test 66.6 fL 80-98 L code = MCV) MEAN CELL HGB (test 20.2 picogram 27.0-33.0 L code = MCH) MEAN CELL HGB 30.3 gram/dL 33.0-36.0 L CONCETRATION (test code = MCHC) RED CELL DISTRIBUTION 16.3 % 11.6-16.2 H WIDTH (test code = RDW) RED CELL DISTRIBUTION 36.1 fL 37.0-51.0 L WIDTH SD (test code = RDW-SD) PLATELET COUNT (test 394 K/mm3 150-450 RESULT VERIFIED BY code = PLT) REPEAT ANALYSIS MEAN PLATELET VOLUME 11.4 fL 6.7-11.0 H (test code = MPV) NEUTROPHIL % (test 69.8 % 39.0-69.0 H code = NT%) IMMATURE GRANULOCYTE % 0.8 % 0.0-5.0 N (test code = IG%) LYMPHOCYTE % (test 23.4 % 25.0-55.0 L code = LY%) MONOCYTE % (test code 5.5 % 0.0-10.0 N = MO%) EOSINOPHIL % (test 0.3 % 0.0-5.0 N code = EO%) BASOPHIL % (test code 0.2 % 0.0-1.0 N = BA%) NUCLEATED RBC % (test 0.0 % 0-0 N code = NRBC%) NEUTROPHIL # (test 10.21 K/mm3 1.8-7.7 H code = NT#) IMMATURE GRANULOCYTE # 0.11 x10 3/uL 0-0.03 H (test code = IG#) LYMPHOCYTE # (test 3.42 K/mm3 1.0-5.0 N code = LY#) MONOCYTE # (test code 0.81 K/mm3 0-0.8 H = MO#) EOSINOPHIL # (test 0.04 K/mm3 0.0-0.5 N code = EO#) BASOPHIL # (test code 0.03 K/mm3 0.0-0.2 N = BA#) NUCLEATED RBC # (test 0.00 K/mm3 0.0-0.1 N code = NRBC#) MANUAL DIFF REQUIRED NO (test code = MDIFF) COMPREHENSIVE METABOLIC [id number] 07:08:00 Test Item Value Reference Range Interpretation Comments SODIUM (test code = 142 mmol/L 136-145 N NA) POTASSIUM (test code = 4.2 mmol/L 3.5-5.1 N K) CHLORIDE (test code = 109.0 mmol/L 98-107 H CL) CARBON DIOXIDE (test 25.0 mmol/L 21-32 N code = CO2) ANION GAP (test code = 12.2 10-20 N GAP) GLUCOSE (test code = 118 mg/dL 74-106 H GLU) BLOOD UREA NITROGEN 13 mg/dL 7-18 N (test code = BUN) GLOMERULAR FILTRATION > 60 mL/min >=60 Estima maggie GFR by RATE (test code = GFR) using Modified MDRD formula.Chronic kidney disease is defined as ei er kidney damageor GFR <60 mL/min/1.73 m2 for >3 months. CREATININE (test code 0.70 mg/dL 0.55-1.02 N Note change in = CREAT) reference range due to change in reagent. BUN/CREATININE RATIO 19.7 10-20 N (test code = BUN/CREA) TOTAL PROTEIN (test 6.4 gram/dL 6.4-8.2 N code = PROT) ALBUMIN (test code = 2.6 g/dL 3.4-5.0 L ALB) GLOBULIN (test code = 3.8 gram/dL 2.7-4.2 N GLOB) ALBUMIN/GLOBULIN RATIO 0.7 0.75-1.50 L (test code = A/G) CALCIUM (test code = 8.7 mg/dL 8.5-10.1 N CA) BILIRUBIN TOTAL (test 0.30 mg/dL 0.0-1.0 N code = BILT) SGOT/AST (test code = 154 IUnit/L 15-37 H AST) SGPT/ALT (test code = 390 IUnit/L 12-78 H ALT) ALKALINE PHOSPHATASE 120 IUnit/L 45-117 H Note change in TOTAL (test code = reference range due ALKP) to change in reagent. COMPREHENSIVE METABOLIC [id number] 06:59:00 Test Item Value Reference Range Interpretation Comments SODIUM (test code = NA) 142 mmol/L 136-145 N POTASSIUM (test code = K) 4.2 mmol/L 3.5-5.1 N CHLORIDE (test code = CL) 109.0 mmol/L 98-107 H CARBON DIOXIDE (test code = CO2) mmol/L 21-32 ANION GAP (test code = GAP) 10-20 GLUCOSE (test code = GLU) mg/dL 74-106 BLOOD UREA NITROGEN (test code = mg/dL 7-18 BUN) GLOMERULAR FILTRATION RATE (test mL/min >=60 code = GFR) CREATININE (test code = CREAT) mg/dL 0.55-1.02 BUN/CREATININE RATIO (test code 10-20 = BUN/CREA) TOTAL PROTEIN (test code = PROT) gram/dL 6.4-8.2 ALBUMIN (test code = ALB) g/dL 3.4-5.0 GLOBULIN (test code = GLOB) gram/dL 2.7-4.2 ALBUMIN/GLOBULIN RATIO (test 0.75-1.50 code = A/G) CALCIUM (test code = CA) mg/dL 8.5-10.1 BILIRUBIN TOTAL (test code = mg/dL 0.0-1.0 BILT) SGOT/AST (test code = AST) IUnit/L 15-37 SGPT/ALT (test code = ALT) IUnit/L 12-78 ALKALINE PHOSPHATASE TOTAL (test IUnit/L 45-117 code = ALKP) CBC W/AUTO [id number] 07:38:00 Test Item Value Reference Range Interpretation Comments WHITE BLOOD CELL (test 10.7 K/mm3 4.5-12.5 N code = WBC) RED BLOOD CELL (test code 5.26 mill/mm3 3.7-5.2 H = RBC) HEMOGLOBIN (test code = 10.4 gram/dL 11.5-15.5 L HGB) HEMATOCRIT (test code = 35.0 % 36.0-46.0 L HCT) MEAN CELL VOLUME (test 66.5 fL 80-98 L code = MCV) MEAN CELL HGB (test code 19.8 picogram 27.0-33.0 L = MCH) MEAN CELL HGB 29.7 gram/dL 33.0-36.0 L CONCETRATION (test code = MCHC) RED CELL DISTRIBUTION 16.3 % 11.6-16.2 H WIDTH (test code = RDW) RED CELL DISTRIBUTION 36.1 fL 37.0-51.0 L WIDTH SD (test code = RDW-SD) PLATELET COUNT (test code 340 K/mm3 150-450 N = PLT) MEAN PLATELET VOLUME 10.7 fL 6.7-11.0 N (test code = MPV) NEUTROPHIL % (test code = 57.4 % 39.0-69.0 N NT%) IMMATURE GRANULOCYTE % 1.9 % 0.0-5.0 N (test code = IG%) LYMPHOCYTE % (test code = 31.1 % 25.0-55.0 N LY%) MONOCYTE % (test code = 5.8 % 0.0-10.0 N MO%) EOSINOPHIL % (test code = 3.1 % 0.0-5.0 N EO%) BASOPHIL % (test code = 0.7 % 0.0-1.0 N BA%) NUCLEATED RBC % (test 0.0 % 0-0 N code = NRBC%) NEUTROPHIL # (test code = 6.14 K/mm3 1.8-7.7 N NT#) IMMATURE GRANULOCYTE # 0.20 x10 3/uL 0-0.03 H (test code = IG#) LYMPHOCYTE # (test code = 3.32 K/mm3 1.0-5.0 N LY#) MONOCYTE # (test code = 0.62 K/mm3 0-0.8 N MO#) EOSINOPHIL # (test code = 0.33 K/mm3 0.0-0.5 N EO#) BASOPHIL # (test code = 0.08 K/mm3 0.0-0.2 N BA#) NUCLEATED RBC # (test 0.00 K/mm3 0.0-0.1 N code = NRBC#) MANUAL DIFF REQUIRED NO, ONLY SCAN NEEDED (test code = MDIFF) DIFFERENTIAL [id number] 07:38:00 Test Item Value Reference Range Interpretation Comments STAIN ACCEPTABILITY (test STAIN ACCEPTABLE code = STN ACCEPTABLE) POIKILOCYTOSIS (test code = 2+ POIK) ANISOCYTOSIS (test code = 2+ ANISO) MICROCYTOSIS (test code = 2+ MICR) ELLIPTOCYTES (test code = 1+ ELL) PLATELET ESTIMATE (test code ADEQUATE = PLTEST) PLATELET MORPHOLOGY (test NORMAL code = PLTMORPH) COMPREHENSIVE METABOLIC [id number] 07:13:00 Test Item Value Reference Range Interpretation Comments SODIUM (test code = 140 mmol/L 136-145 N NA) POTASSIUM (test code = 3.8 mmol/L 3.5-5.1 N K) CHLORIDE (test code = 106.0 mmol/L 98-107 N CL) CARBON DIOXIDE (test 26.0 mmol/L 21-32 N code = CO2) ANION GAP (test code = 11.8 10-20 N GAP) GLUCOSE (test code = 80 mg/dL 74-106 N GLU) BLOOD UREA NITROGEN 11 mg/dL 7-18 N (test code = BUN) GLOMERULAR FILTRATION > 60 mL/min >=60 Estima maggie GFR by RATE (test code = GFR) using Modified MDRD formula.Chronic kidney disease is defined as ei er kidney damageor GFR <60 mL/min/1.73 m2 for >3 months. CREATININE (test code 0.60 mg/dL 0.55-1.02 N Note change in = CREAT) reference range due to change in reagent. BUN/CREATININE RATIO 19.4 10-20 N (test code = BUN/CREA) TOTAL PROTEIN (test 6.7 gram/dL 6.4-8.2 N code = PROT) ALBUMIN (test code = 2.5 g/dL 3.4-5.0 L ALB) GLOBULIN (test code = 4.2 gram/dL 2.7-4.2 N GLOB) ALBUMIN/GLOBULIN RATIO 0.6 0.75-1.50 L (test code = A/G) CALCIUM (test code = 9.3 mg/dL 8.5-10.1 N CA) BILIRUBIN TOTAL (test 0.30 mg/dL 0.0-1.0 N code = BILT) SGOT/AST (test code = 212 IUnit/L 15-37 H AST) SGPT/ALT (test code = 378 IUnit/L 12-78 H ALT) ALKALINE PHOSPHATASE 119 IUnit/L 45-117 H Note change in TOTAL (test code = reference range due ALKP) to change in reagent. COMPREHENSIVE METABOLIC [id number] 07:02:00 Test Item Value Reference Range Interpretation Comments SODIUM (test code = NA) 140 mmol/L 136-145 N POTASSIUM (test code = K) 3.8 mmol/L 3.5-5.1 N CHLORIDE (test code = CL) 106.0 mmol/L 98-107 N CARBON DIOXIDE (test code = CO2) mmol/L 21-32 ANION GAP (test code = GAP) 10-20 GLUCOSE (test code = GLU) mg/dL 74-106 BLOOD UREA NITROGEN (test code = mg/dL 7-18 BUN) GLOMERULAR FILTRATION RATE (test mL/min >=60 code = GFR) CREATININE (test code = CREAT) mg/dL 0.55-1.02 BUN/CREATININE RATIO (test code 10-20 = BUN/CREA) TOTAL PROTEIN (test code = PROT) gram/dL 6.4-8.2 ALBUMIN (test code = ALB) g/dL 3.4-5.0 GLOBULIN (test code = GLOB) gram/dL 2.7-4.2 ALBUMIN/GLOBULIN RATIO (test 0.75-1.50 code = A/G) CALCIUM (test code = CA) mg/dL 8.5-10.1 BILIRUBIN TOTAL (test code = mg/dL 0.0-1.0 BILT) SGOT/AST (test code = AST) IUnit/L 15-37 SGPT/ALT (test code = ALT) IUnit/L 12-78 ALKALINE PHOSPHATASE TOTAL (test IUnit/L 45-117 code = ALKP) [id number] 06:57:00 Test Item Value Reference Range Interpretation Comments GLUBED (test code = 85 mg/dL 74-106 N Performe d by certified GLUBED) save all operator at [facility] CBC W/AUTO [id number] 06:45:00 Test Item Value Reference Range Interpretation Comments WHITE BLOOD CELL (test 10.7 K/mm3 4.5-12.5 N code = WBC) RED BLOOD CELL (test code 5.26 mill/mm3 3.7-5.2 H = RBC) HEMOGLOBIN (test code = 10.4 gram/dL 11.5-15.5 L HGB) HEMATOCRIT (test code = 35.0 % 36.0-46.0 L HCT) MEAN CELL VOLUME (test 66.5 fL 80-98 L code = MCV) MEAN CELL HGB (test code 19.8 picogram 27.0-33.0 L = MCH) MEAN CELL HGB 29.7 gram/dL 33.0-36.0 L CONCETRATION (test code = MCHC) RED CELL DISTRIBUTION 16.3 % 11.6-16.2 H WIDTH (test code = RDW) RED CELL DISTRIBUTION 36.1 fL 37.0-51.0 L WIDTH SD (test code = RDW-SD) PLATELET COUNT (test code 340 K/mm3 150-450 N = PLT) MEAN PLATELET VOLUME 10.7 fL 6.7-11.0 N (test code = MPV) NEUTROPHIL % (test code = 57.4 % 39.0-69.0 N NT%) IMMATURE GRANULOCYTE % 1.9 % 0.0-5.0 N (test code = IG%) LYMPHOCYTE % (test code = 31.1 % 25.0-55.0 N LY%) MONOCYTE % (test code = 5.8 % 0.0-10.0 N MO%) EOSINOPHIL % (test code = 3.1 % 0.0-5.0 N EO%) BASOPHIL % (test code = 0.7 % 0.0-1.0 N BA%) NUCLEATED RBC % (test 0.0 % 0-0 N code = NRBC%) NEUTROPHIL # (test code = 6.14 K/mm3 1.8-7.7 N NT#) IMMATURE GRANULOCYTE # 0.20 x10 3/uL 0-0.03 H (test code = IG#) LYMPHOCYTE # (test code = 3.32 K/mm3 1.0-5.0 N LY#) MONOCYTE # (test code = 0.62 K/mm3 0-0.8 N MO#) EOSINOPHIL # (test code = 0.33 K/mm3 0.0-0.5 N EO#) BASOPHIL # (test code = 0.08 K/mm3 0.0-0.2 N BA#) NUCLEATED RBC # (test 0.00 K/mm3 0.0-0.1 N code = NRBC#) MANUAL DIFF REQUIRED NO, ONLY SCAN NEEDED (test code = MDIFF) DIFFERENTIAL [id number] 06:45:00 Test Item Value Reference Range Interpretation Comments STAIN ACCEPTABILITY (test code = STN ACCEPTABLE) CABOT RINGS (test code = CAB) MORPHOLOGY COMMENT (test code = MOC) PLATELET ESTIMATE (test code = PLTEST) PLATELET MORPHOLOGY (test code = PLTMORPH) CBC W/AUTO [id number] 06:45:00 Test Item Value Reference Range Interpretation Comments WHITE BLOOD CELL (test 10.7 K/mm3 4.5-12.5 N code = WBC) RED BLOOD CELL (test code 5.26 mill/mm3 3.7-5.2 H = RBC) HEMOGLOBIN (test code = 10.4 gram/dL 11.5-15.5 L HGB) HEMATOCRIT (test code = 35.0 % 36.0-46.0 L HCT) MEAN CELL VOLUME (test 66.5 fL 80-98 L code = MCV) MEAN CELL HGB (test code 19.8 picogram 27.0-33.0 L = MCH) MEAN CELL HGB 29.7 gram/dL 33.0-36.0 L CONCETRATION (test code = MCHC) RED CELL DISTRIBUTION 16.3 % 11.6-16.2 H WIDTH (test code = RDW) RED CELL DISTRIBUTION 36.1 fL 37.0-51.0 L WIDTH SD (test code = RDW-SD) PLATELET COUNT (test code 340 K/mm3 150-450 N = PLT) MEAN PLATELET VOLUME 10.7 fL 6.7-11.0 N (test code = MPV) NEUTROPHIL % (test code = 57.4 % 39.0-69.0 N NT%) IMMATURE GRANULOCYTE % 1.9 % 0.0-5.0 N (test code = IG%) LYMPHOCYTE % (test code = 31.1 % 25.0-55.0 N LY%) MONOCYTE % (test code = 5.8 % 0.0-10.0 N MO%) EOSINOPHIL % (test code = 3.1 % 0.0-5.0 N EO%) BASOPHIL % (test code = 0.7 % 0.0-1.0 N BA%) NUCLEATED RBC % (test 0.0 % 0-0 N code = NRBC%) NEUTROPHIL # (test code = 6.14 K/mm3 1.8-7.7 N NT#) IMMATURE GRANULOCYTE # 0.20 x10 3/uL 0-0.03 H (test code = IG#) LYMPHOCYTE # (test code = 3.32 K/mm3 1.0-5.0 N LY#) MONOCYTE # (test code = 0.62 K/mm3 0-0.8 N MO#) EOSINOPHIL # (test code = 0.33 K/mm3 0.0-0.5 N EO#) BASOPHIL # (test code = 0.08 K/mm3 0.0-0.2 N BA#) NUCLEATED RBC # (test 0.00 K/mm3 0.0-0.1 N code = NRBC#) MANUAL DIFF REQUIRED NO, ONLY SCAN NEEDED (test code = MDIFF) DIFFERENTIAL [id number] 06:45:00 Test Item Value Reference Range Interpretation Comments STAIN ACCEPTABILITY (test code = STN ACCEPTABLE) CABOT RINGS (test code = CAB) MORPHOLOGY COMMENT (test code = MOC) PLATELET ESTIMATE (test code = PLTEST) PLATELET MORPHOLOGY (test code = PLTMORPH) CBC W/AUTO [id number] 06:45:00 Test Item Value Reference Range Interpretation Comments WHITE BLOOD CELL (test 10.7 K/mm3 4.5-12.5 N code = WBC) RED BLOOD CELL (test code 5.26 mill/mm3 3.7-5.2 H = RBC) HEMOGLOBIN (test code = 10.4 gram/dL 11.5-15.5 L HGB) HEMATOCRIT (test code = 35.0 % 36.0-46.0 L HCT) MEAN CELL VOLUME (test 66.5 fL 80-98 L code = MCV) MEAN CELL HGB (test code 19.8 picogram 27.0-33.0 L = MCH) MEAN CELL HGB 29.7 gram/dL 33.0-36.0 L CONCETRATION (test code = MCHC) RED CELL DISTRIBUTION 16.3 % 11.6-16.2 H WIDTH (test code = RDW) RED CELL DISTRIBUTION 36.1 fL 37.0-51.0 L WIDTH SD (test code = RDW-SD) PLATELET COUNT (test code 340 K/mm3 150-450 N = PLT) MEAN PLATELET VOLUME 10.7 fL 6.7-11.0 N (test code = MPV) NEUTROPHIL % (test code = 57.4 % 39.0-69.0 N NT%) IMMATURE GRANULOCYTE % 1.9 % 0.0-5.0 N (test code = IG%) LYMPHOCYTE % (test code = 31.1 % 25.0-55.0 N LY%) MONOCYTE % (test code = 5.8 % 0.0-10.0 N MO%) EOSINOPHIL % (test code = 3.1 % 0.0-5.0 N EO%) BASOPHIL % (test code = 0.7 % 0.0-1.0 N BA%) NUCLEATED RBC % (test 0.0 % 0-0 N code = NRBC%) NEUTROPHIL # (test code = 6.14 K/mm3 1.8-7.7 N NT#) IMMATURE GRANULOCYTE # 0.20 x10 3/uL 0-0.03 H (test code = IG#) LYMPHOCYTE # (test code = 3.32 K/mm3 1.0-5.0 N LY#) MONOCYTE # (test code = 0.62 K/mm3 0-0.8 N MO#) EOSINOPHIL # (test code = 0.33 K/mm3 0.0-0.5 N EO#) BASOPHIL # (test code = 0.08 K/mm3 0.0-0.2 N BA#) NUCLEATED RBC # (test 0.00 K/mm3 0.0-0.1 N code = NRBC#) MANUAL DIFF REQUIRED NO, ONLY SCAN NEEDED (test code = MDIFF) DIFFERENTIAL [id number] 06:45:00 Test Item Value Reference Range Interpretation Comments STAIN ACCEPTABILITY (test code = STN ACCEPTABLE) MORPHOLOGY COMMENT (test code = MOC) PLATELET ESTIMATE (test code = PLTEST) PLATELET MORPHOLOGY (test code = PLTMORPH) CBC W/AUTO [id number] 06:45:00 Test Item Value Reference Range Interpretation Comments WHITE BLOOD CELL (test 10.7 K/mm3 4.5-12.5 N code = WBC) RED BLOOD CELL (test code 5.26 mill/mm3 3.7-5.2 H = RBC) HEMOGLOBIN (test code = 10.4 gram/dL 11.5-15.5 L HGB) HEMATOCRIT (test code = 35.0 % 36.0-46.0 L HCT) MEAN CELL VOLUME (test 66.5 fL 80-98 L code = MCV) MEAN CELL HGB (test code 19.8 picogram 27.0-33.0 L = MCH) MEAN CELL HGB 29.7 gram/dL 33.0-36.0 L CONCETRATION (test code = MCHC) RED CELL DISTRIBUTION 16.3 % 11.6-16.2 H WIDTH (test code = RDW) RED CELL DISTRIBUTION 36.1 fL 37.0-51.0 L WIDTH SD (test code = RDW-SD) PLATELET COUNT (test code 340 K/mm3 150-450 N = PLT) MEAN PLATELET VOLUME 10.7 fL 6.7-11.0 N (test code = MPV) NEUTROPHIL % (test code = 57.4 % 39.0-69.0 N NT%) IMMATURE GRANULOCYTE % 1.9 % 0.0-5.0 N (test code = IG%) LYMPHOCYTE % (test code = 31.1 % 25.0-55.0 N LY%) MONOCYTE % (test code = 5.8 % 0.0-10.0 N MO%) EOSINOPHIL % (test code = 3.1 % 0.0-5.0 N EO%) BASOPHIL % (test code = 0.7 % 0.0-1.0 N BA%) NUCLEATED RBC % (test 0.0 % 0-0 N code = NRBC%) NEUTROPHIL # (test code = 6.14 K/mm3 1.8-7.7 N NT#) IMMATURE GRANULOCYTE # 0.20 x10 3/uL 0-0.03 H (test code = IG#) LYMPHOCYTE # (test code = 3.32 K/mm3 1.0-5.0 N LY#) MONOCYTE # (test code = 0.62 K/mm3 0-0.8 N MO#) EOSINOPHIL # (test code = 0.33 K/mm3 0.0-0.5 N EO#) BASOPHIL # (test code = 0.08 K/mm3 0.0-0.2 N BA#) NUCLEATED RBC # (test 0.00 K/mm3 0.0-0.1 N code = NRBC#) MANUAL DIFF REQUIRED NO, ONLY SCAN NEEDED (test code = MDIFF) DIFFERENTIAL [id number] 06:45:00 Test Item Value Reference Range Interpretation Comments STAIN ACCEPTABILITY (test code = STN ACCEPTABLE) CABOT RINGS (test code = CAB) MORPHOLOGY COMMENT (test code = MOC) PLATELET ESTIMATE (test code = PLTEST) PLATELET MORPHOLOGY (test code = PLTMORPH) COMPREHENSIVE METABOLIC [id number] 09:18:00 Test Item Value Reference Range Interpretation Comments SODIUM (test code = 141 mmol/L 136-145 N NA) POTASSIUM (test code = 3.7 mmol/L 3.5-5.1 N K) CHLORIDE (test code = 104.0 mmol/L 98-107 N CL) CARBON DIOXIDE (test 28.0 mmol/L 21-32 N code = CO2) ANION GAP (test code = 12.7 10-20 N GAP) GLUCOSE (test code = 98 mg/dL 74-106 N GLU) BLOOD UREA NITROGEN 13 mg/dL 7-18 N (test code = BUN) GLOMERULAR FILTRATION > 60 mL/min >=60 Estima maggie GFR by RATE (test code = GFR) using Modified MDRD formula.Chronic kidney disease is defined as [facility] er kidney damageor GFR <60 mL/min/1.73 m2 for >3 months. CREATININE (test code 0.70 mg/dL 0.55-1.02 N Note change in = CREAT) reference range due to change in reagent. BUN/CREATININE RATIO 19.9 10-20 N (test code = BUN/CREA) TOTAL PROTEIN (test 7.1 gram/dL 6.4-8.2 N code = PROT) ALBUMIN (test code = 2.9 g/dL 3.4-5.0 L ALB) GLOBULIN (test code = 4.2 gram/dL 2.7-4.2 N GLOB) ALBUMIN/GLOBULIN RATIO 0.7 0.75-1.50 L (test code = A/G) CALCIUM (test code = 9.5 mg/dL 8.5-10.1 N CA) BILIRUBIN TOTAL (test 0.30 mg/dL 0.0-1.0 N code = BILT) SGOT/AST (test code = 268 IUnit/L 15-37 H AST) SGPT/ALT (test code = 391 IUnit/L 12-78 H ALT) ALKALINE PHOSPHATASE 143 IUnit/L 45-117 H Note change in TOTAL (test code = reference range due ALKP) to change in reagent. COMPREHENSIVE METABOLIC [id number] 09:06:00 Test Item Value Reference Range Interpretation Comments SODIUM (test code = NA) 141 mmol/L 136-145 N POTASSIUM (test code = K) 3.7 mmol/L 3.5-5.1 N CHLORIDE (test code = CL) 104.0 mmol/L 98-107 N CARBON DIOXIDE (test code = CO2) mmol/L 21-32 ANION GAP (test code = GAP) 10-20 GLUCOSE (test code = GLU) mg/dL 74-106 BLOOD UREA NITROGEN (test code = mg/dL 7-18 BUN) GLOMERULAR FILTRATION RATE (test mL/min >=60 code = GFR) CREATININE (test code = CREAT) mg/dL 0.55-1.02 BUN/CREATININE RATIO (test code 10-20 = BUN/CREA) TOTAL PROTEIN (test code = PROT) gram/dL 6.4-8.2 ALBUMIN (test code = ALB) g/dL 3.4-5.0 GLOBULIN (test code = GLOB) gram/dL 2.7-4.2 ALBUMIN/GLOBULIN RATIO (test 0.75-1.50 code = A/G) CALCIUM (test code = CA) mg/dL 8.5-10.1 BILIRUBIN TOTAL (test code = mg/dL 0.0-1.0 BILT) SGOT/AST (test code = AST) IUnit/L 15-37 SGPT/ALT (test code = ALT) IUnit/L 12-78 ALKALINE PHOSPHATASE TOTAL (test IUnit/L 45-117 code = ALKP) - US ABDOMEN [id number] 12:33:00 [facility] ([facility])Name: MI VASQUEZ : 1990 Sex: F Name: MI VASQUEZ [facility] : 1990 Age/S: 30 / F [address] Unit #: [id number] Loc: TITI Ramirez [address] Phys: Braulio Childs MD Acct: [id number] Dis Date: Status: ADM IN PHONE #: [phone] Exam Date: 11/05/2020 1220 FAX #: [phone] Reason: Elevated LFTs, Recent due to CHTN/preeclamp EXAMS: CPT CODE: [id number] US ABDOMEN LTD [id number] REASON FOR EXAM: Elevated LFTs, Recent due to CHTN/preeclampsia EXAM ORDER DATE: 11/05/2020 10:58 AM Attending M.D.: MD Devaughn PROCEDURE: - US ABDOMEN LTD Technique: Grayscale and color Doppler images of the right-upper quadrant of the abdomen. Comparison: None FINDINGS: Aorta and IVC: Patent and grossly normal in caliber. Liver: Size: 19.4 cm craniocaudally Parenchyma and contour: Smooth contour. Increased echog enicity. Cysts and/or masses: None. Intrahepatic bile ducts: No intrahepatic biliary ductal dilationCommon bile duct: 4.3 mm in diameter. No echogenic filling defects in visualized duct. Gallbladder: Stones/sludge: Gallbladder sludge and stones are visualized.. Wall: 2.1 mm in thickness. No discontinuity. No polyps. No pericholecystic fluid. No hyperemia. Sonographic Whittington's sign: Negative Portal vein: Portal vein caliber is within normal limits. Portal vein is patent with hepatopetal flow. Pancreas: Incompletely visualized. However the visualized portions are grossly within normal limits. Rightkidney: parenchyma echogenicity: Normal echogenicity size: 13.6 x 4 x 5.7 cm stones: none cysts/masses: none PAGE 1 Signed Report (CONTINUED) Name: MI VASQUEZ [facility] : 1990 Age/S: 30 / F [address] Unit #: [id number] Loc: TITI Ramirez [address] Phys: Braulio Childs MD Acct: [id number] Dis Date: Status: ADM IN PHONE #: [phone] Exam Date: 11/05/2020 1220 FAX #: [phone] Reason: Elevated LFTs, Recent due to CHTN/preeclamp EXAMS: CPT CODE: [id number] US ABDOMEN LTD [id number] (Continued) hydronephrosis: none Ascites/pleural effusions: None IMPRESSION: Hepatomegaly with hepatic steatosis. Cholelithiasis and gallbladder sludge without findings of acute cholecystitis. Location: [facility] at 1233 Reported and signed by: Paul Bai M.D. CC: Braulio Childs MD; Carlos Sam Technologist: HAM OLSEN Trnscb Date/Time: 11/05/2020 (1233) [email or web address] Orig Print D/T: S: 11/05/2020 (1236) Probe: PAGE 2 Signed ReportCOMPREHENSIVE METABOLIC [id number] 06:02:00 Test Item Value Reference Range Interpretation Comments SODIUM (test code = 141 mmol/L 136-145 N NA) POTASSIUM (test code = 4.1 mmol/L 3.5-5.1 N K) CHLORIDE (test code = 107.0 mmol/L 98-107 N CL) CARBON DIOXIDE (test 28.0 mmol/L 21-32 N code = CO2) ANION GAP (test code = 10.1 10-20 N GAP) GLUCOSE (test code = 86 mg/dL 74-106 N GLU) BLOOD UREA NITROGEN 10 mg/dL 7-18 N (test code = BUN) GLOMERULAR FILTRATION > 60 mL/min >=60 Estima maggie GFR by RATE (test code = GFR) using Modified MDRD formula.Chronic kidney disease is defined as eith er kidney damageor GFR <60 mL/min/1.73 m2 for >3 months. CREATININE (test code 0.50 mg/dL 0.55-1.02 L Note change in = CREAT) reference range due to change in reagent. BUN/CREATININE RATIO 19.8 10-20 N (test code = BUN/CREA) TOTAL PROTEIN (test 7.1 gram/dL 6.4-8.2 N code = PROT) ALBUMIN (test code = 2.7 g/dL 3.4-5.0 L ALB) GLOBULIN (test code = 4.4 gram/dL 2.7-4.2 H GLOB) ALBUMIN/GLOBULIN RATIO 0.6 0.75-1.50 L (test code = A/G) CALCIUM (test code = 8.7 mg/dL 8.5-10.1 N CA) BILIRUBIN TOTAL (test 0.30 mg/dL 0.0-1.0 N code = BILT) SGOT/AST (test code = 121 IUnit/L 15-37 H AST) SGPT/ALT (test code = 220 IUnit/L 12-78 H ALT) ALKALINE PHOSPHATASE 136 IUnit/L 45-117 H Note change in TOTAL (test code = reference range due ALKP) to change in reagent. COMPREHENSIVE METABOLIC [id number] 06:00:00 Test Item Value Reference Range Interpretation Comments SODIUM (test code = NA) 141 mmol/L 136-145 N POTASSIUM (test code = K) 4.1 mmol/L 3.5-5.1 N CHLORIDE (test code = CL) 107.0 mmol/L 98-107 N CARBON DIOXIDE (test code = CO2) mmol/L 21-32 ANION GAP (test code = GAP) 10-20 GLUCOSE (test code = GLU) mg/dL 74-106 BLOOD UREA NITROGEN (test code = mg/dL 7-18 BUN) GLOMERULAR FILTRATION RATE (test mL/min >=60 code = GFR) CREATININE (test code = CREAT) mg/dL 0.55-1.02 BUN/CREATININE RATIO (test code 10-20 = BUN/CREA) TOTAL PROTEIN (test code = PROT) gram/dL 6.4-8.2 ALBUMIN (test code = ALB) g/dL 3.4-5.0 GLOBULIN (test code = GLOB) gram/dL 2.7-4.2 ALBUMIN/GLOBULIN RATIO (test 0.75-1.50 code = A/G) CALCIUM (test code = CA) mg/dL 8.5-10.1 BILIRUBIN TOTAL (test code = mg/dL 0.0-1.0 BILT) SGOT/AST (test code = AST) IUnit/L 15-37 SGPT/ALT (test code = ALT) IUnit/L 12-78 ALKALINE PHOSPHATASE TOTAL (test IUnit/L 45-117 code = ALKP) COMPREHENSIVE METABOLIC [id number] 08:08:00 Test Item Value Reference Range Interpretation Comments SODIUM (test code = 141 mmol/L 136-145 RESULT V ERIFIED BY NA) REPEAT ANALYSIS POTASSIUM (test code = 4.0 mmol/L 3.5-5.1 N K) CHLORIDE (test code = 108.0 mmol/L 98-107 H CL) CARBON DIOXIDE (test 27.0 mmol/L 21-32 N code = CO2) ANION GAP (test code = 10.0 10-20 N GAP) GLUCOSE (test code = 67 mg/dL 74-106 L GLU) BLOOD UREA NITROGEN 14 mg/dL 7-18 N (test code = BUN) GLOMERULAR FILTRATION > 60 mL/min >=60 Estima maggie GFR by RATE (test code = GFR) using Modified MDRD formula.Chronic kidney disease is defined as eith er kidney damageor GFR <60 mL/min/1.73 m2 for >3 months. CREATININE (test code 0.60 mg/dL 0.55-1.02 N Note change in = CREAT) reference range due to change in reagent. BUN/CREATININE RATIO 23.3 10-20 H (test code = BUN/CREA) TOTAL PROTEIN (test 6.1 gram/dL 6.4-8.2 L code = PROT) ALBUMIN (test code = 2.2 g/dL 3.4-5.0 L ALB) GLOBULIN (test code = 3.9 gram/dL 2.7-4.2 N GLOB) ALBUMIN/GLOBULIN RATIO 0.6 0.75-1.50 L (test code = A/G) CALCIUM (test code = 8.2 mg/dL 8.5-10.1 L CA) BILIRUBIN TOTAL (test 0.30 mg/dL 0.0-1.0 N code = BILT) SGOT/AST (test code = 109 IUnit/L 15-37 H AST) SGPT/ALT (test code = 176 IUnit/L 12-78 H ALT) ALKALINE PHOSPHATASE 120 IUnit/L 45-117 H Note change in TOTAL (test code = reference range due ALKP) to change in reagent. LACTIC DEHYDROGENASE(LDH)2020-11-04 08:08:00 Test Item Value Reference Range Interpretation Comments LACTIC DEHYDROGENASE(LDH) (test 242 IUnit/L 84-246 N code = LDH) CBC W/AUTO [id number] 07:23:00 Test Item Value Reference Range Interpretation Comments WHITE BLOOD CELL (test 10.5 K/mm3 4.5-12.5 N code = WBC) RED BLOOD CELL (test 4.83 mill/mm3 3.7-5.2 N code = RBC) HEMOGLOBIN (test code 9.8 gram/dL 11.5-15.5 L = HGB) HEMATOCRIT (test code 31.8 % 36.0-46.0 L = HCT) MEAN CELL VOLUME (test 65.8 fL 80-98 L code = MCV) MEAN CELL HGB (test 20.3 picogram 27.0-33.0 L code = MCH) MEAN CELL HGB 30.8 gram/dL 33.0-36.0 L CONCETRATION (test code = MCHC) RED CELL DISTRIBUTION 16.0 % 11.6-16.2 N WIDTH (test code = RDW) RED CELL DISTRIBUTION 36.2 fL 37.0-51.0 L WIDTH SD (test code = RDW-SD) PLATELET COUNT (test 272 K/mm3 150-450 RESULT VERIFIED BY code = PLT) REPEAT ANALYSIS MEAN PLATELET VOLUME 11.5 fL 6.7-11.0 H (test code = MPV) NEUTROPHIL % (test 64.8 % 39.0-69.0 N code = NT%) IMMATURE GRANULOCYTE % 0.8 % 0.0-5.0 N (test code = IG%) LYMPHOCYTE % (test 28.7 % 25.0-55.0 N code = LY%) MONOCYTE % (test code 4.9 % 0.0-10.0 N = MO%) EOSINOPHIL % (test 0.4 % 0.0-5.0 N code = EO%) BASOPHIL % (test code 0.4 % 0.0-1.0 N = BA%) NUCLEATED RBC % (test 0.0 % 0-0 N code = NRBC%) NEUTROPHIL # (test 6.80 K/mm3 1.8-7.7 N code = NT#) IMMATURE GRANULOCYTE # 0.08 x10 3/uL 0-0.03 H (test code = IG#) LYMPHOCYTE # (test 3.01 K/mm3 1.0-5.0 N code = LY#) MONOCYTE # (test code 0.51 K/mm3 0-0.8 N = MO#) EOSINOPHIL # (test 0.04 K/mm3 0.0-0.5 N code = EO#) BASOPHIL # (test code 0.04 K/mm3 0.0-0.2 N = BA#) NUCLEATED RBC # (test 0.00 K/mm3 0.0-0.1 N code = NRBC#) LACTIC DEHYDROGENASE(LDH)2020-11-03 14:57:00 Test Item Value Reference Range Interpretation Comments LACTIC DEHYDROGENASE(LDH) (test 505 IUnit/L 84-246 H code = LDH) COMPREHENSIVE METABOLIC [id number] 14:20:00 Test Item Value Reference Range Interpretation Comments SODIUM (test code = 136 mmol/L 136-145 N NA) POTASSIUM (test code = 4.2 mmol/L 3.5-5.1 N K) CHLORIDE (test code = 108.0 mmol/L 98-107 H CL) CARBON DIOXIDE (test 22.0 mmol/L 21-32 N code = CO2) ANION GAP (test code = 10.2 10-20 N GAP) GLUCOSE (test code = 103 mg/dL 74-106 N GLU) BLOOD UREA NITROGEN 10 mg/dL 7-18 N (test code = BUN) GLOMERULAR FILTRATION > 60 mL/min >=60 Estima maggie GFR by RATE (test code = GFR) using Modified MDRD formula.Chronic kidney disease is defined as eith er kidney damageor GFR <60 mL/min/1.73 m2 for >3 months. CREATININE (test code 0.60 mg/dL 0.55-1.02 N Note change in = CREAT) reference range due to change in reagent. BUN/CREATININE RATIO 16.6 10-20 N (test code = BUN/CREA) TOTAL PROTEIN (test 6.4 gram/dL 6.4-8.2 N code = PROT) ALBUMIN (test code = 2.6 g/dL 3.4-5.0 L ALB) GLOBULIN (test code = 3.8 gram/dL 2.7-4.2 N GLOB) ALBUMIN/GLOBULIN RATIO 0.7 0.75-1.50 L (test code = A/G) CALCIUM (test code = 6.9 mg/dL 8.5-10.1 L CA) BILIRUBIN TOTAL (test 0.30 mg/dL 0.0-1.0 N code = BILT) SGOT/AST (test code = 98 IUnit/L 15-37 H AST) SGPT/ALT (test code = 186 IUnit/L 12-78 H ALT) ALKALINE PHOSPHATASE 153 IUnit/L 45-117 H Note change in TOTAL (test code = reference range due ALKP) to change in reagent. [id number] 14:20:00 Test Item Value Reference Range Interpretation Comments MAGNESIUM (test code = MAG) 5.2 mg/dL 1.8-2.4 H COMPREHENSIVE METABOLIC [id number] 14:08:00 Test Item Value Reference Range Interpretation Comments SODIUM (test code = NA) 136 mmol/L 136-145 N POTASSIUM (test code = K) 4.2 mmol/L 3.5-5.1 N CHLORIDE (test code = CL) 108.0 mmol/L 98-107 H CARBON DIOXIDE (test code = CO2) mmol/L 21-32 ANION GAP (test code = GAP) 10-20 GLUCOSE (test code = GLU) mg/dL 74-106 BLOOD UREA NITROGEN (test code = mg/dL 7-18 BUN) GLOMERULAR FILTRATION RATE (test mL/min >=60 code = GFR) CREATININE (test code = CREAT) mg/dL 0.55-1.02 BUN/CREATININE RATIO (test code 10-20 = BUN/CREA) TOTAL PROTEIN (test code = PROT) gram/dL 6.4-8.2 ALBUMIN (test code = ALB) g/dL 3.4-5.0 GLOBULIN (test code = GLOB) gram/dL 2.7-4.2 ALBUMIN/GLOBULIN RATIO (test 0.75-1.50 code = A/G) CALCIUM (test code = CA) mg/dL 8.5-10.1 BILIRUBIN TOTAL (test code = mg/dL 0.0-1.0 BILT) SGOT/AST (test code = AST) IUnit/L 15-37 SGPT/ALT (test code = ALT) IUnit/L 12-78 ALKALINE PHOSPHATASE TOTAL (test IUnit/L 45-117 code = ALKP) [id number] 14:08:00 Test Item Value Reference Range Interpretation Comments MAGNESIUM (test code = MAG) mg/dL 1.8-2.4 CBC W/AUTO [id number] 13:29:00 Test Item Value Reference Range Interpretation Comments WHITE BLOOD CELL (test code = 16.4 K/mm3 4.5-12.5 H WBC) RED BLOOD CELL (test code = 5.22 mill/mm3 3.7-5.2 H RBC) HEMOGLOBIN (test code = HGB) 10.6 gram/dL 11.5-15.5 L HEMATOCRIT (test code = HCT) 33.8 % 36.0-46.0 L MEAN CELL VOLUME (test code = 64.8 fL 80-98 L MCV) MEAN CELL HGB (test code = MCH) 20.3 picogram 27.0-33.0 L MEAN CELL HGB CONCETRATION 31.4 gram/dL 33.0-36.0 L (test code = MCHC) RED CELL DISTRIBUTION WIDTH 16.2 % 11.6-16.2 N (test code = RDW) RED CELL DISTRIBUTION WIDTH SD 35.6 fL 37.0-51.0 L (test code = RDW-SD) PLATELET COUNT (test code = 365 K/mm3 150-450 PLT) MEAN PLATELET VOLUME (test code 11.1 fL 6.7-11.0 H = MPV) NEUTROPHIL % (test code = NT%) 76.8 % 39.0-69.0 H IMMATURE GRANULOCYTE % (test 0.6 % 0.0-5.0 N code = IG%) LYMPHOCYTE % (test code = LY%) 16.9 % 25.0-55.0 L MONOCYTE % (test code = MO%) 5.3 % 0.0-10.0 N EOSINOPHIL % (test code = EO%) 0.2 % 0.0-5.0 N BASOPHIL % (test code = BA%) 0.2 % 0.0-1.0 N NUCLEATED RBC % (test code = 0.0 % 0-0 N NRBC%) NEUTROPHIL # (test code = NT#) 12.61 K/mm3 1.8-7.7 H IMMATURE GRANULOCYTE # (test 0.10 x10 3/uL 0-0.03 H code = IG#) LYMPHOCYTE # (test code = LY#) 2.78 K/mm3 1.0-5.0 N MONOCYTE # (test code = MO#) 0.87 K/mm3 0-0.8 H EOSINOPHIL # (test code = EO#) 0.03 K/mm3 0.0-0.5 N BASOPHIL # (test code = BA#) 0.04 K/mm3 0.0-0.2 N NUCLEATED RBC # (test code = 0.00 K/mm3 0.0-0.1 N NRBC#) CBC W/AUTO [id number] 06:19:00 Test Item Value Reference Range Interpretation Comments WHITE BLOOD CELL (test code = 15.5 K/mm3 4.5-12.5 H WBC) RED BLOOD CELL (test code = 4.60 mill/mm3 3.7-5.2 N RBC) HEMOGLOBIN (test code = HGB) 9.4 gram/dL 11.5-15.5 L HEMATOCRIT (test code = HCT) 29.8 % 36.0-46.0 L MEAN CELL VOLUME (test code = 64.8 fL 80-98 L MCV) MEAN CELL HGB (test code = MCH) 20.4 picogram 27.0-33.0 L MEAN CELL HGB CONCETRATION 31.5 gram/dL 33.0-36.0 L (test code = MCHC) RED CELL DISTRIBUTION WIDTH 15.9 % 11.6-16.2 N (test code = RDW) RED CELL DISTRIBUTION WIDTH SD 35.3 fL 37.0-51.0 L (test code = RDW-SD) PLATELET COUNT (test code = 312 K/mm3 150-450 N PLT) MEAN PLATELET VOLUME (test code 11.7 fL 6.7-11.0 H = MPV) NEUTROPHIL % (test code = NT%) 81.8 % 39.0-69.0 H IMMATURE GRANULOCYTE % (test 0.6 % 0.0-5.0 N code = IG%) LYMPHOCYTE % (test code = LY%) 11.8 % 25.0-55.0 L MONOCYTE % (test code = MO%) 5.6 % 0.0-10.0 N EOSINOPHIL % (test code = EO%) 0.0 % 0.0-5.0 N BASOPHIL % (test code = BA%) 0.2 % 0.0-1.0 N NUCLEATED RBC % (test code = 0.0 % 0-0 N NRBC%) NEUTROPHIL # (test code = NT#) 12.69 K/mm3 1.8-7.7 H IMMATURE GRANULOCYTE # (test 0.10 x10 3/uL 0-0.03 H code = IG#) LYMPHOCYTE # (test code = LY#) 1.84 K/mm3 1.0-5.0 N MONOCYTE # (test code = MO#) 0.87 K/mm3 0-0.8 H EOSINOPHIL # (test code = EO#) 0.00 K/mm3 0.0-0.5 N BASOPHIL # (test code = BA#) 0.03 K/mm3 0.0-0.2 N NUCLEATED RBC # (test code = 0.00 K/mm3 0.0-0.1 N NRBC#) SPECIMEN COMMENTS: day 1COMPREHENSIVE METABOLIC [id number] 06:12:00 Test Item Value Reference Range Interpretation Comments SODIUM (test code = 138 mmol/L 136-145 N NA) POTASSIUM (test code = 4.0 mmol/L 3.5-5.1 N K) CHLORIDE (test code = 108.0 mmol/L 98-107 H CL) CARBON DIOXIDE (test 25.0 mmol/L 21-32 N code = CO2) ANION GAP (test code = 9.0 10-20 L GAP) GLUCOSE (test code = 116 mg/dL 74-106 H GLU) BLOOD UREA NITROGEN 9 mg/dL 7-18 N (test code = BUN) GLOMERULAR FILTRATION > 60 mL/min >=60 Estima maggie GFR by RATE (test code = GFR) using Modified MDRD formula.Chronic kidney disease is defined as [facility] er kidney damageor GFR <60 mL/min/1.73 m2 for >3 months. CREATININE (test code 0.60 mg/dL 0.55-1.02 N Note change in = CREAT) reference range due to change in reagent. BUN/CREATININE RATIO 15.8 10-20 N (test code = BUN/CREA) TOTAL PROTEIN (test 6.3 gram/dL 6.4-8.2 L code = PROT) ALBUMIN (test code = 2.3 g/dL 3.4-5.0 L ALB) GLOBULIN (test code = 4.0 gram/dL 2.7-4.2 N GLOB) ALBUMIN/GLOBULIN RATIO 0.6 0.75-1.50 L (test code = A/G) CALCIUM (test code = 7.0 mg/dL 8.5-10.1 L CA) BILIRUBIN TOTAL (test 0.30 mg/dL 0.0-1.0 N code = BILT) SGOT/AST (test code = 85 IUnit/L 15-37 H AST) SGPT/ALT (test code = 166 IUnit/L 12-78 H ALT) ALKALINE PHOSPHATASE 137 IUnit/L 45-117 H Note change in TOTAL (test code = reference range due ALKP) to change in reagent. [id number] 06:12:00 Test Item Value Reference Range Interpretation Comments MAGNESIUM (test code = MAG) 5.0 mg/dL 1.8-2.4 H COMPREHENSIVE METABOLIC [id number] 06:11:00 Test Item Value Reference Range Interpretation Comments SODIUM (test code = NA) 138 mmol/L 136-145 N POTASSIUM (test code = K) 4.0 mmol/L 3.5-5.1 N CHLORIDE (test code = CL) 108.0 mmol/L 98-107 H CARBON DIOXIDE (test code = CO2) mmol/L 21-32 ANION GAP (test code = GAP) 10-20 GLUCOSE (test code = GLU) mg/dL 74-106 BLOOD UREA NITROGEN (test code = mg/dL 7-18 BUN) GLOMERULAR FILTRATION RATE (test mL/min >=60 code = GFR) CREATININE (test code = CREAT) mg/dL 0.55-1.02 BUN/CREATININE RATIO (test code 10-20 = BUN/CREA) TOTAL PROTEIN (test code = PROT) gram/dL 6.4-8.2 ALBUMIN (test code = ALB) g/dL 3.4-5.0 GLOBULIN (test code = GLOB) gram/dL 2.7-4.2 ALBUMIN/GLOBULIN RATIO (test 0.75-1.50 code = A/G) CALCIUM (test code = CA) mg/dL 8.5-10.1 BILIRUBIN TOTAL (test code = mg/dL 0.0-1.0 BILT) SGOT/AST (test code = AST) IUnit/L 15-37 SGPT/ALT (test code = ALT) IUnit/L 12-78 ALKALINE PHOSPHATASE TOTAL (test IUnit/L 45-117 code = ALKP) [id number] 06:11:00 Test Item Value Reference Range Interpretation Comments MAGNESIUM (test code = MAG) 5.0 mg/dL 1.8-2.4 H COMPREHENSIVE METABOLIC [id number] 05:56:00 Test Item Value Reference Range Interpretation Comments SODIUM (test code = NA) 138 mmol/L 136-145 N POTASSIUM (test code = K) 4.0 mmol/L 3.5-5.1 N CHLORIDE (test code = CL) 108.0 mmol/L 98-107 H CARBON DIOXIDE (test code = CO2) mmol/L 21-32 ANION GAP (test code = GAP) 10-20 GLUCOSE (test code = GLU) mg/dL 74-106 BLOOD UREA NITROGEN (test code = mg/dL 7-18 BUN) GLOMERULAR FILTRATION RATE (test mL/min >=60 code = GFR) CREATININE (test code = CREAT) mg/dL 0.55-1.02 BUN/CREATININE RATIO (test code 10-20 = BUN/CREA) TOTAL PROTEIN (test code = PROT) gram/dL 6.4-8.2 ALBUMIN (test code = ALB) g/dL 3.4-5.0 GLOBULIN (test code = GLOB) gram/dL 2.7-4.2 ALBUMIN/GLOBULIN RATIO (test 0.75-1.50 code = A/G) CALCIUM (test code = CA) mg/dL 8.5-10.1 BILIRUBIN TOTAL (test code = mg/dL 0.0-1.0 BILT) SGOT/AST (test code = AST) IUnit/L 15-37 SGPT/ALT (test code = ALT) IUnit/L 12-78 ALKALINE PHOSPHATASE TOTAL (test IUnit/L 45-117 code = ALKP) [id number] 22:03:00 Test Item Value Reference Range Interpretation Comments MAGNESIUM (test code = MAG) 5.1 mg/dL 1.8-2.4 H HIV 1 2 COMBO AG/AB [id number] 21:40:00 Test Item Value Reference Range Interpretation Comments HIV 1 2 COMBO AB/AG NON NONREACTIVE NONREACTIVE H IV P24 AG/AB SCREEN REACTIVE ANTIGEN NONREAC TIVE (test code = NONREACTIVE HIV 1&2 [id number]) ANTIBODY NONREA CTIVE THE HIV-1 P24 T EST HELPS DISTINGUI SH ACUTE HIV-1INFECTIONF ROM ESTABLISHED HIV -1 INFECTION WHEN THE SPECIMEN ISPOSI TIVE FOR HIV-1 P24 A NTIGEN. HIV-1 P24 ANTIG EN IS HIGHEST IN THE FIRST FEW WEEKS AFTERINFECTION COVID 19 INHOUSE [id number] 20:09:00 Test Item Value Reference Range Interpretation Comments COVID 19 INHOUSE AG (test code = NEGATIVE [id number]) AG HEPAT B [id number] 18:49:00 Test Item Value Reference Range Interpretation Comments AG HEPAT B SURF (test code Nonreactive Index Nonreactive = HBSAG) AB [id number] 18:49:00 Test Item Value Reference Range Interpretation Comments AB TREPONEMA (test code = Nonreactive Index NonReactive TREPAB) URINALYSIS [id number] 18:42:00 Test Item Value Reference Range Interpretation Comments UA COLOR (test code = COLU) YELLOW YELLOW UA APPEARANCE (test code = HAZY CLEAR A APPU) UA GLUCOSE DIPSTICK (test code NEGATIVE mg/dL NEGATIVE = DGLUU) UA BILIRUBIN DIPSTICK (test NEGATIVE NEGATIVE code = BILU) UA KETONE DIPSTICK (test code TRACE mg/dL NEGATIVE = KETU) UA SPECIFIC GRAVITY (test code 1.025 1.001-1.035 = SGU) UA BLOOD DIPSTICK (test code = NEGATIVE NEGATIVE ZENA) UA PH DIPSTICK (test code = 6.0 5.0-8.0 RAMONA) UA PROTEIN DIPSTICK (test code NEGATIVE mg/dL Neg-15 = PROU) UA UROBILINIOGEN DIPSTICK 0.2 mg/dL 0.0-0.2 (test code = URO) UA NITRITE DIPSTICK (test code NEGATIVE NEGATIVE = FILIPPO) UA LEUKOCYTE ESTERASE W REFLEX TRACE NEGATIVE A (test code = LEUUR) UA WBC (test code = WBCU) 6-10 per HPF 0-5 A UA RBC (test code = RBCU) 0-2 #/HPF 0-5 UA EPITHELIAL CELLS (test code FEW per HPF FEW = EPIU) UA BACTERIA (test code = BACU) MODERATE #/HPF NONE A UA MUCUS (test code = MUCU) FEW #/LPF FEW COMPREHENSIVE METABOLIC [id number] 18:35:00 Test Item Value Reference Range Interpretation Comments SODIUM (test code = 139 mmol/L 136-145 N NA) POTASSIUM (test code = 4.1 mmol/L 3.5-5.1 N K) CHLORIDE (test code = 107.0 mmol/L 98-107 N CL) CARBON DIOXIDE (test 24.0 mmol/L 21-32 N code = CO2) ANION GAP (test code = 12.1 10-20 N GAP) GLUCOSE (test code = 84 mg/dL 74-106 N GLU) BLOOD UREA NITROGEN 11 mg/dL 7-18 N (test code = BUN) GLOMERULAR FILTRATION > 60 mL/min >=60 Estima maggie GFR by RATE (test code = GFR) using Modified MDRD formula.Chronic kidney disease is defined as eith er kidney damageor GFR <60 mL/min/1.73 m2 for >3 months. CREATININE (test code 0.70 mg/dL 0.55-1.02 N Note change in = CREAT) reference range due to change in reagent. BUN/CREATININE RATIO 16.4 10-20 N (test code = BUN/CREA) TOTAL PROTEIN (test 7.6 gram/dL 6.4-8.2 N code = PROT) ALBUMIN (test code = 2.9 g/dL 3.4-5.0 L ALB) GLOBULIN (test code = 4.7 gram/dL 2.7-4.2 H GLOB) ALBUMIN/GLOBULIN RATIO 0.6 0.75-1.50 L (test code = A/G) CALCIUM (test code = 9.0 mg/dL 8.5-10.1 N CA) BILIRUBIN TOTAL (test 0.40 mg/dL 0.0-1.0 N code = BILT) SGOT/AST (test code = 53 IUnit/L 15-37 H AST) SGPT/ALT (test code = 99 IUnit/L 12-78 H ALT) ALKALINE PHOSPHATASE 179 IUnit/L 45-117 H Note change in TOTAL (test code = reference range due ALKP) to change in reagent. URIC [id number] 18:35:00 Test Item Value Reference Range Interpretation Comments URIC ACID (test code = URIC) 4.3 mg/dL 2.6-7.2 N URINALYSIS [id number] 18:32:00 Test Item Value Reference Range Interpretation Comments UA COLOR (test code = COLU) YELLOW YELLOW UA APPEARANCE (test code = HAZY CLEAR A APPU) UA GLUCOSE DIPSTICK (test code NEGATIVE mg/dL NEGATIVE = DGLUU) UA BILIRUBIN DIPSTICK (test NEGATIVE NEGATIVE code = BILU) UA KETONE DIPSTICK (test code TRACE mg/dL NEGATIVE = KETU) UA SPECIFIC GRAVITY (test code 1.025 1.001-1.035 = SGU) UA BLOOD DIPSTICK (test code = NEGATIVE NEGATIVE ZENA) UA PH DIPSTICK (test code = 6.0 5.0-8.0 RAMONA) UA PROTEIN DIPSTICK (test code NEGATIVE mg/dL Neg-15 = PROU) UA UROBILINIOGEN DIPSTICK 0.2 mg/dL 0.0-0.2 (test code = URO) UA NITRITE DIPSTICK (test code NEGATIVE NEGATIVE = FILIPPO) UA LEUKOCYTE ESTERASE W REFLEX TRACE NEGATIVE A (test code = LEUUR) UA WBC (test code = WBCU) per HPF 0-5 UA RBC (test code = RBCU) per HPF 0-5 UA EPITHELIAL CELLS (test code per HPF Few = EPIU) UA BACTERIA (test code = BACU) per HPF NONE URINALYSIS [id number] 18:32:00 Test Item Value Reference Range Interpretation Comments UA COLOR (test code = COLU) YELLOW YELLOW UA APPEARANCE (test code = HAZY CLEAR A APPU) UA GLUCOSE DIPSTICK (test code NEGATIVE mg/dL NEGATIVE = DGLUU) UA BILIRUBIN DIPSTICK (test NEGATIVE NEGATIVE code = BILU) UA KETONE DIPSTICK (test code TRACE mg/dL NEGATIVE = KETU) UA SPECIFIC GRAVITY (test code 1.025 1.001-1.035 = SGU) UA BLOOD DIPSTICK (test code = NEGATIVE NEGATIVE ZENA) UA PH DIPSTICK (test code = 6.0 5.0-8.0 RAMONA) UA PROTEIN DIPSTICK (test code NEGATIVE mg/dL Neg-15 = PROU) UA UROBILINIOGEN DIPSTICK 0.2 mg/dL 0.0-0.2 (test code = URO) UA NITRITE DIPSTICK (test code NEGATIVE NEGATIVE = FILIPPO) UA LEUKOCYTE ESTERASE W REFLEX TRACE NEGATIVE A (test code = LEUUR) UA WBC (test code = WBCU) per HPF 0-5 UA RBC (test code = RBCU) per HPF 0-5 UA EPITHELIAL CELLS (test code per HPF Few = EPIU) UA BACTERIA (test code = BACU) per HPF NONE CBC W/AUTO [id number] 18:23:00 Test Item Value Reference Range Interpretation Comments WHITE BLOOD CELL (test code = 10.6 K/mm3 4.5-12.5 N WBC) RED BLOOD CELL (test code = 5.42 mill/mm3 3.7-5.2 H RBC) HEMOGLOBIN (test code = HGB) 10.8 gram/dL 11.5-15.5 L HEMATOCRIT (test code = HCT) 35.2 % 36.0-46.0 L MEAN CELL VOLUME (test code = 64.9 fL 80-98 L MCV) MEAN CELL HGB (test code = MCH) 19.9 picogram 27.0-33.0 L MEAN CELL HGB CONCETRATION 30.7 gram/dL 33.0-36.0 L (test code = MCHC) RED CELL DISTRIBUTION WIDTH 16.6 % 11.6-16.2 H (test code = RDW) RED CELL DISTRIBUTION WIDTH SD 35.2 fL 37.0-51.0 L (test code = RDW-SD) PLATELET COUNT (test code = 285 K/mm3 150-450 N PLT) MEAN PLATELET VOLUME (test code 10.9 fL 6.7-11.0 N = MPV) NEUTROPHIL % (test code = NT%) 71.7 % 39.0-69.0 H IMMATURE GRANULOCYTE % (test 0.4 % 0.0-5.0 N code = IG%) LYMPHOCYTE % (test code = LY%) 21.3 % 25.0-55.0 L MONOCYTE % (test code = MO%) 5.4 % 0.0-10.0 N EOSINOPHIL % (test code = EO%) 0.8 % 0.0-5.0 N BASOPHIL % (test code = BA%) 0.4 % 0.0-1.0 N NUCLEATED RBC % (test code = 0.0 % 0-0 N NRBC%) NEUTROPHIL # (test code = NT#) 7.60 K/mm3 1.8-7.7 N IMMATURE GRANULOCYTE # (test 0.04 x10 3/uL 0-0.03 H code = IG#) LYMPHOCYTE # (test code = LY#) 2.26 K/mm3 1.0-5.0 N MONOCYTE # (test code = MO#) 0.57 K/mm3 0-0.8 N EOSINOPHIL # (test code = EO#) 0.08 K/mm3 0.0-0.5 N BASOPHIL # (test code = BA#) 0.04 K/mm3 0.0-0.2 N NUCLEATED RBC # (test code = 0.00 K/mm3 0.0-0.1 N NRBC#) COMPREHENSIVE METABOLIC [id number] 18:20:00 Test Item Value Reference Range Interpretation Comments SODIUM (test code = NA) 139 mmol/L 136-145 N POTASSIUM (test code = K) 4.1 mmol/L 3.5-5.1 N CHLORIDE (test code = CL) 107.0 mmol/L 98-107 N CARBON DIOXIDE (test code = CO2) mmol/L 21-32 ANION GAP (test code = GAP) 10-20 GLUCOSE (test code = GLU) mg/dL 74-106 BLOOD UREA NITROGEN (test code = mg/dL 7-18 BUN) GLOMERULAR FILTRATION RATE (test mL/min >=60 code = GFR) CREATININE (test code = CREAT) mg/dL 0.55-1.02 BUN/CREATININE RATIO (test code 10-20 = BUN/CREA) TOTAL PROTEIN (test code = PROT) gram/dL 6.4-8.2 ALBUMIN (test code = ALB) g/dL 3.4-5.0 GLOBULIN (test code = GLOB) gram/dL 2.7-4.2 ALBUMIN/GLOBULIN RATIO (test 0.75-1.50 code = A/G) CALCIUM (test code = CA) mg/dL 8.5-10.1 BILIRUBIN TOTAL (test code = mg/dL 0.0-1.0 BILT) SGOT/AST (test code = AST) IUnit/L 15-37 SGPT/ALT (test code = ALT) IUnit/L 12-78 ALKALINE PHOSPHATASE TOTAL (test IUnit/L 45-117 code = ALKP) URIC [id number] 18:20:00 Test Item Value Reference Range Interpretation Comments URIC ACID (test code = URIC) mg/dL 2.6-7.2 COMPREHENSIVE METABOLIC [id number] 16:58:00 Test Item Value Reference Range Interpretation Comments SODIUM (test code = 139 mmol/L 136-145 N NA) POTASSIUM (test code = 4.4 mmol/L 3.5-5.1 N K) CHLORIDE (test code = 106.0 mmol/L 98-107 N CL) CARBON DIOXIDE (test 25.0 mmol/L 21-32 N code = CO2) ANION GAP (test code = 12.4 10-20 N GAP) GLUCOSE (test code = 81 mg/dL 74-106 N GLU) BLOOD UREA NITROGEN 6 mg/dL 7-18 L (test code = BUN) GLOMERULAR FILTRATION > 60 mL/min >=60 Estima maggie GFR by RATE (test code = GFR) using Modified MDRD formula.Chronic kidney disease is defined as [facility] er kidney damageor GFR <60 mL/min/1.73 m2 for >3 months. CREATININE (test code 0.50 mg/dL 0.55-1.02 L Note change in = CREAT) reference range due to change in reagent. BUN/CREATININE RATIO 13.0 10-20 N (test code = BUN/CREA) TOTAL PROTEIN (test 7.0 gram/dL 6.4-8.2 N code = PROT) ALBUMIN (test code = 3.0 g/dL 3.4-5.0 L ALB) GLOBULIN (test code = 4.0 gram/dL 2.7-4.2 N GLOB) ALBUMIN/GLOBULIN RATIO 0.8 0.75-1.50 N (test code = A/G) CALCIUM (test code = 8.6 mg/dL 8.5-10.1 N CA) BILIRUBIN TOTAL (test 0.40 mg/dL 0.0-1.0 N code = BILT) SGOT/AST (test code = 57 IUnit/L 15-37 H AST) SGPT/ALT (test code = 81 IUnit/L 12-78 H ALT) ALKALINE PHOSPHATASE 153 IUnit/L 45-117 H Note change in TOTAL (test code = reference range due ALKP) to change in reagent. COMPREHENSIVE METABOLIC [id number] 16:35:00 Test Item Value Reference Range Interpretation Comments SODIUM (test code = NA) 139 mmol/L 136-145 N POTASSIUM (test code = K) 4.4 mmol/L 3.5-5.1 N CHLORIDE (test code = CL) 106.0 mmol/L 98-107 N CARBON DIOXIDE (test code = CO2) mmol/L 21-32 ANION GAP (test code = GAP) 10-20 GLUCOSE (test code = GLU) mg/dL 74-106 BLOOD UREA NITROGEN (test code = mg/dL 7-18 BUN) GLOMERULAR FILTRATION RATE (test mL/min >=60 code = GFR) CREATININE (test code = CREAT) mg/dL 0.55-1.02 BUN/CREATININE RATIO (test code 10-20 = BUN/CREA) TOTAL PROTEIN (test code = PROT) gram/dL 6.4-8.2 ALBUMIN (test code = ALB) g/dL 3.4-5.0 GLOBULIN (test code = GLOB) gram/dL 2.7-4.2 ALBUMIN/GLOBULIN RATIO (test 0.75-1.50 code = A/G) CALCIUM (test code = CA) mg/dL 8.5-10.1 BILIRUBIN TOTAL (test code = mg/dL 0.0-1.0 BILT) SGOT/AST (test code = AST) IUnit/L 15-37 SGPT/ALT (test code = ALT) IUnit/L 12-78 ALKALINE PHOSPHATASE TOTAL (test IUnit/L 45-117 code = ALKP) [id number] 16:35:00 Test Item Value Reference Range Interpretation Comments GLYCOSYLATED HEMOGLOBIN 5.6 % HbA1 KELLIE THORNTON DIAGNOSIS: (HA1C) (test code = HbA1C GLYHGB) (%) ----- ----- Diab etic >6.4Prediabetes 5.7 - 6.4Normal <5. 7 ESTIMATED AVERAGE 114 MG/DL GLUCOSE (test code = EAG) CBC W/AUTO [id number] 16:28:00 Test Item Value Reference Range Interpretation Comments WHITE BLOOD CELL (test 10.5 K/mm3 4.5-12.5 N code = WBC) RED BLOOD CELL (test 5.34 mill/mm3 3.7-5.2 H code = RBC) HEMOGLOBIN (test code 11.0 gram/dL 11.5-15.5 L = HGB) HEMATOCRIT (test code 35.3 % 36.0-46.0 L = HCT) MEAN CELL VOLUME (test 66.1 fL 80-98 L code = MCV) MEAN CELL HGB (test 20.6 picogram 27.0-33.0 L code = MCH) MEAN CELL HGB 31.2 gram/dL 33.0-36.0 L CONCETRATION (test code = MCHC) RED CELL DISTRIBUTION 17.0 % 11.6-16.2 H WIDTH (test code = RDW) RED CELL DISTRIBUTION 36.4 fL 37.0-51.0 L WIDTH SD (test code = RDW-SD) PLATELET COUNT (test 275 K/mm3 150-450 N RESULT VERIFIED BY code = PLT) REPEAT ANALYSIS MEAN PLATELET VOLUME 11.9 fL 6.7-11.0 H (test code = MPV) NEUTROPHIL % (test 74.7 % 39.0-69.0 H code = NT%) IMMATURE GRANULOCYTE % 0.9 % 0.0-5.0 N (test code = IG%) LYMPHOCYTE % (test 18.8 % 25.0-55.0 L code = LY%) MONOCYTE % (test code 4.7 % 0.0-10.0 N = MO%) EOSINOPHIL % (test 0.6 % 0.0-5.0 N code = EO%) BASOPHIL % (test code 0.3 % 0.0-1.0 N = BA%) NUCLEATED RBC % (test 0.0 % 0-0 N code = NRBC%) NEUTROPHIL # (test 7.84 K/mm3 1.8-7.7 H code = NT#) IMMATURE GRANULOCYTE # 0.09 x10 3/uL 0-0.03 H (test code = IG#) LYMPHOCYTE # (test 1.97 K/mm3 1.0-5.0 N code = LY#) MONOCYTE # (test code 0.49 K/mm3 0-0.8 N = MO#) EOSINOPHIL # (test 0.06 K/mm3 0.0-0.5 N code = EO#) BASOPHIL # (test code 0.03 K/mm3 0.0-0.2 N = BA#) NUCLEATED RBC # (test 0.00 K/mm3 0.0-0.1 N code = NRBC#) MANUAL DIFF REQUIRED NO (test code = MDIFF) UA GLUCOSE DIPSTIC [id number] 11:44:00 Test Item Value Reference Range Interpretation Comments UA GLUCOSE DIPSTIC POC (test code = Negative Negative GLUUP) UA GLU: NEGATIVEKET UA NEGATIVEPH UA 6.0UA NIT NegativePROT UA 15 (TRACE)BL UA NEGATIVEUA LEOPOLDO NegativeTime performed: 1143UA KETONE DIPSTICK [id number] 11:44:00 Test Item Value Reference Range Interpretation Comments UA KETONE DIPSTICK POC (test code = Negative KETUP) UA GLU: NEGATIVEKET UA NEGATIVEPH UA 6.0UA NIT NegativePROT UA 15 (TRACE)BL UA NEGATIVEUA LEOPOLDO NegativeTime performed: 1143UA BLOOD DIPSTIC [id number] 11:44:00 Test Item Value Reference Range Interpretation Comments UA BLOOD DIPSTIC POC (test code = BLUP) NEGATIVE UA GLU: NEGATIVEKET UA NEGATIVEPH UA 6.0UA NIT NegativePROT UA 15 (TRACE)BL UA NEGATIVEUA LEOPOLDO NegativeTime performed: 1143UA PH DIPSTIC [id number] 11:44:00 Test Item Value Reference Range Interpretation Comments UA PH DIPSTIC POC (test code = PHUP) 5-8 UA GLU: NEGATIVEKET UA NEGATIVEPH UA 6.0UA NIT NegativePROT UA 15 (TRACE)BL UA NEGATIVEUA LEOPOLDO NegativeTime performed: 1143UA PROTEIN DIPSTICK [id number] 11:44:00 Test Item Value Reference Range Interpretation Comments UA PROTEIN DIPSTICK POC (test code = Neg -15 DPROUP) UA GLU: NEGATIVEKET UA NEGATIVEPH UA 6.0UA NIT NegativePROT UA 15 (TRACE)BL UA NEGATIVEUA LEOPOLDO NegativeTime performed: 1143UA NITRITE DIPSTICK [id number] 11:44:00 Test Item Value Reference Range Interpretation Comments UA NITRITE DIPSTICK POC (test code = Negative NITUP) UA GLU: NEGATIVEKET UA NEGATIVEPH UA 6.0UA NIT NegativePROT UA 15 (TRACE)BL UA NEGATIVEUA LEOPOLDO NegativeTime performed: 1143UA LEUKOCYTE ESTERASE [id number] 11:44:00 Test Item Value Reference Range Interpretation Comments UA LEUKOCYTE ESTERASE POC (test code = NEGATIVE LEUUPOC) UA GLU: NEGATIVEKET UA NEGATIVEPH UA 6.0UA NIT NegativePROT UA 15 (TRACE)BL UA NEGATIVEUA LEOPOLDO NegativeTime performed: 1143UA GLUCOSE DIPSTIC [id number] 11:44:00 Test Item Value Reference Range Interpretation Comments UA GLUCOSE DIPSTIC POC (test code = Negative Negative GLUUP) UA GLU: NEGATIVEKET UA NEGATIVEPH UA 6.0UA NIT NegativePROT UA 15 (TRACE)BL UA NEGATIVEUA LEOPOLDO NegativeTime performed: 1143UA KETONE DIPSTICK [id number] 11:44:00 Test Item Value Reference Range Interpretation Comments UA KETONE DIPSTICK POC (test code = Negative Negative KETUP) UA GLU: NEGATIVEKET UA NEGATIVEPH UA 6.0UA NIT NegativePROT UA 15 (TRACE)BL UA NEGATIVEUA LEOPOLDO NegativeTime performed: 1143UA BLOOD DIPSTIC [id number] 11:44:00 Test Item Value Reference Range Interpretation Comments UA BLOOD DIPSTIC POC (test code = BLUP) NEGATIVE UA GLU: NEGATIVEKET UA NEGATIVEPH UA 6.0UA NIT NegativePROT UA 15 (TRACE)BL UA NEGATIVEUA LEOPOLDO NegativeTime performed: 1143UA PH DIPSTIC [id number] 11:44:00 Test Item Value Reference Range Interpretation Comments UA PH DIPSTIC POC (test code = PHUP) 5-8 UA GLU: NEGATIVEKET UA NEGATIVEPH UA 6.0UA NIT NegativePROT UA 15 (TRACE)BL UA NEGATIVEUA LEOPOLDO NegativeTime performed: 1143UA PROTEIN DIPSTICK [id number] 11:44:00 Test Item Value Reference Range Interpretation Comments UA PROTEIN DIPSTICK POC (test code = Neg -15 DPROUP) UA GLU: NEGATIVEKET UA NEGATIVEPH UA 6.0UA NIT NegativePROT UA 15 (TRACE)BL UA NEGATIVEUA LEOPOLDO NegativeTime performed: 1143UA NITRITE DIPSTICK [id number] 11:44:00 Test Item Value Reference Range Interpretation Comments UA NITRITE DIPSTICK POC (test code = Negative NITUP) UA GLU: NEGATIVEKET UA NEGATIVEPH UA 6.0UA NIT NegativePROT UA 15 (TRACE)BL UA NEGATIVEUA LEOPOLDO NegativeTime performed: 1143UA LEUKOCYTE ESTERASE [id number] 11:44:00 Test Item Value Reference Range Interpretation Comments UA LEUKOCYTE ESTERASE POC (test code = NEGATIVE LEUUPOC) UA GLU: NEGATIVEKET UA NEGATIVEPH UA 6.0UA NIT NegativePROT UA 15 (TRACE)BL UA NEGATIVEUA LEOPOLDO NegativeTime performed: 1143UA GLUCOSE DIPSTIC [id number] 11:44:00 Test Item Value Reference Range Interpretation Comments UA GLUCOSE DIPSTIC POC (test code = Negative Negative GLUUP) UA GLU: NEGATIVEKET UA NEGATIVEPH UA 6.0UA NIT NegativePROT UA 15 (TRACE)BL UA NEGATIVEUA LEOPOLDO NegativeTime performed: 1143UA KETONE DIPSTICK [id number] 11:44:00 Test Item Value Reference Range Interpretation Comments UA KETONE DIPSTICK POC (test code = Negative Negative KETUP) UA GLU: NEGATIVEKET UA NEGATIVEPH UA 6.0UA NIT NegativePROT UA 15 (TRACE)BL UA NEGATIVEUA LEOPOLDO NegativeTime performed: 1143UA BLOOD DIPSTIC [id number] 11:44:00 Test Item Value Reference Range Interpretation Comments UA BLOOD DIPSTIC POC (test code = Negative NEGATIVE BLUP) UA GLU: NEGATIVEKET UA NEGATIVEPH UA 6.0UA NIT NegativePROT UA 15 (TRACE)BL UA NEGATIVEUA LEOPOLDO NegativeTime performed: 1143UA PH DIPSTIC [id number] 11:44:00 Test Item Value Reference Range Interpretation Comments UA PH DIPSTIC POC (test code = PHUP) 5-8 UA GLU: NEGATIVEKET UA NEGATIVEPH UA 6.0UA NIT NegativePROT UA 15 (TRACE)BL UA NEGATIVEUA LEOPOLDO NegativeTime performed: 1143UA PROTEIN DIPSTICK [id number] 11:44:00 Test Item Value Reference Range Interpretation Comments UA PROTEIN DIPSTICK POC (test code = Neg -15 DPROUP) UA GLU: NEGATIVEKET UA NEGATIVEPH UA 6.0UA NIT NegativePROT UA 15 (TRACE)BL UA NEGATIVEUA LEOPOLDO NegativeTime performed: 1143UA NITRITE DIPSTICK [id number] 11:44:00 Test Item Value Reference Range Interpretation Comments UA NITRITE DIPSTICK POC (test code = Negative NITUP) UA GLU: NEGATIVEKET UA NEGATIVEPH UA 6.0UA NIT NegativePROT UA 15 (TRACE)BL UA NEGATIVEUA LEOPOLDO NegativeTime performed: 1143UA LEUKOCYTE ESTERASE [id number] 11:44:00 Test Item Value Reference Range Interpretation Comments UA LEUKOCYTE ESTERASE POC (test code = NEGATIVE LEUUPOC) UA GLU: NEGATIVEKET UA NEGATIVEPH UA 6.0UA NIT NegativePROT UA 15 (TRACE)BL UA NEGATIVEUA LEOPOLDO NegativeTime performed: 1143UA GLUCOSE DIPSTIC [id number] 11:44:00 Test Item Value Reference Range Interpretation Comments UA GLUCOSE DIPSTIC POC (test code = Negative Negative GLUUP) UA GLU: NEGATIVEKET UA NEGATIVEPH UA 6.0UA NIT NegativePROT UA 15 (TRACE)BL UA NEGATIVEUA LEOPOLDO NegativeTime performed: 1143UA KETONE DIPSTICK [id number] 11:44:00 Test Item Value Reference Range Interpretation Comments UA KETONE DIPSTICK POC (test code = Negative Negative KETUP) UA GLU: NEGATIVEKET UA NEGATIVEPH UA 6.0UA NIT NegativePROT UA 15 (TRACE)BL UA NEGATIVEUA LEOPOLDO NegativeTime performed: 1143UA BLOOD DIPSTIC [id number] 11:44:00 Test Item Value Reference Range Interpretation Comments UA BLOOD DIPSTIC POC (test code = Negative NEGATIVE BLUP) UA GLU: NEGATIVEKET UA NEGATIVEPH UA 6.0UA NIT NegativePROT UA 15 (TRACE)BL UA NEGATIVEUA LEOPOLDO NegativeTime performed: 1143UA PH DIPSTIC [id number] 11:44:00 Test Item Value Reference Range Interpretation Comments UA PH DIPSTIC POC (test code = PHUP) 6 5-8 N UA GLU: NEGATIVEKET UA NEGATIVEPH UA 6.0UA NIT NegativePROT UA 15 (TRACE)BL UA NEGATIVEUA LEOPOLDO NegativeTime performed: 1143UA PROTEIN DIPSTICK [id number] 11:44:00 Test Item Value Reference Range Interpretation Comments UA PROTEIN DIPSTICK POC (test code = Neg -15 DPROUP) UA GLU: NEGATIVEKET UA NEGATIVEPH UA 6.0UA NIT NegativePROT UA 15 (TRACE)BL UA NEGATIVEUA LEOPOLDO NegativeTime performed: 1143UA NITRITE DIPSTICK [id number] 11:44:00 Test Item Value Reference Range Interpretation Comments UA NITRITE DIPSTICK POC (test code = Negative NITUP) UA GLU: NEGATIVEKET UA NEGATIVEPH UA 6.0UA NIT NegativePROT UA 15 (TRACE)BL UA NEGATIVEUA LEOPOLDO NegativeTime performed: 1143UA LEUKOCYTE ESTERASE [id number] 11:44:00 Test Item Value Reference Range Interpretation Comments UA LEUKOCYTE ESTERASE POC (test code = NEGATIVE LEUUPOC) UA GLU: NEGATIVEKET UA NEGATIVEPH UA 6.0UA NIT NegativePROT UA 15 (TRACE)BL UA NEGATIVEUA LEOPOLDO NegativeTime performed: 1143UA GLUCOSE DIPSTIC [id number] 11:44:00 Test Item Value Reference Range Interpretation Comments UA GLUCOSE DIPSTIC POC (test code = Negative Negative GLUUP) UA GLU: NEGATIVEKET UA NEGATIVEPH UA 6.0UA NIT NegativePROT UA 15 (TRACE)BL UA NEGATIVEUA LEOPOLDO NegativeTime performed: 1143UA KETONE DIPSTICK [id number] 11:44:00 Test Item Value Reference Range Interpretation Comments UA KETONE DIPSTICK POC (test code = Negative Negative KETUP) UA GLU: NEGATIVEKET UA NEGATIVEPH UA 6.0UA NIT NegativePROT UA 15 (TRACE)BL UA NEGATIVEUA LEOPOLDO NegativeTime performed: 1143UA BLOOD DIPSTIC [id number] 11:44:00 Test Item Value Reference Range Interpretation Comments UA BLOOD DIPSTIC POC (test code = Negative NEGATIVE BLUP) UA GLU: NEGATIVEKET UA NEGATIVEPH UA 6.0UA NIT NegativePROT UA 15 (TRACE)BL UA NEGATIVEUA LEOPOLDO NegativeTime performed: 1143UA PH DIPSTIC [id number] 11:44:00 Test Item Value Reference Range Interpretation Comments UA PH DIPSTIC POC (test code = PHUP) 6 5-8 N UA GLU: NEGATIVEKET UA NEGATIVEPH UA 6.0UA NIT NegativePROT UA 15 (TRACE)BL UA NEGATIVEUA LEOPOLDO NegativeTime performed: 1143UA PROTEIN DIPSTICK [id number] 11:44:00 Test Item Value Reference Range Interpretation Comments UA PROTEIN DIPSTICK POC (test code 15 (Trace) Neg -15 A = DPROUP) UA GLU: NEGATIVEKET UA NEGATIVEPH UA 6.0UA NIT NegativePROT UA 15 (TRACE)BL UA NEGATIVEUA LEOPOLDO NegativeTime performed: 1143UA NITRITE DIPSTICK [id number] 11:44:00 Test Item Value Reference Range Interpretation Comments UA NITRITE DIPSTICK POC (test code = Negative NITUP) UA GLU: NEGATIVEKET UA NEGATIVEPH UA 6.0UA NIT NegativePROT UA 15 (TRACE)BL UA NEGATIVEUA LEOPOLDO NegativeTime performed: 1143UA LEUKOCYTE ESTERASE [id number] 11:44:00 Test Item Value Reference Range Interpretation Comments UA LEUKOCYTE ESTERASE POC (test code = NEGATIVE LEUUPOC) UA GLU: NEGATIVEKET UA NEGATIVEPH UA 6.0UA NIT NegativePROT UA 15 (TRACE)BL UA NEGATIVEUA LEOPOLDO NegativeTime performed: 1143UA GLUCOSE DIPSTIC [id number] 11:44:00 Test Item Value Reference Range Interpretation Comments UA GLUCOSE DIPSTIC POC (test code = Negative Negative GLUUP) UA GLU: NEGATIVEKET UA NEGATIVEPH UA 6.0UA NIT NegativePROT UA 15 (TRACE)BL UA NEGATIVEUA LEOPOLDO NegativeTime performed: 1143UA KETONE DIPSTICK [id number] 11:44:00 Test Item Value Reference Range Interpretation Comments UA KETONE DIPSTICK POC (test code = Negative Negative KETUP) UA GLU: NEGATIVEKET UA NEGATIVEPH UA 6.0UA NIT NegativePROT UA 15 (TRACE)BL UA NEGATIVEUA LEOPOLDO NegativeTime performed: 1143UA BLOOD DIPSTIC [id number] 11:44:00 Test Item Value Reference Range Interpretation Comments UA BLOOD DIPSTIC POC (test code = Negative NEGATIVE BLUP) UA GLU: NEGATIVEKET UA NEGATIVEPH UA 6.0UA NIT NegativePROT UA 15 (TRACE)BL UA NEGATIVEUA LEOPOLDO NegativeTime performed: 1143UA PH DIPSTIC [id number] 11:44:00 Test Item Value Reference Range Interpretation Comments UA PH DIPSTIC POC (test code = PHUP) 6 5-8 N UA GLU: NEGATIVEKET UA NEGATIVEPH UA 6.0UA NIT NegativePROT UA 15 (TRACE)BL UA NEGATIVEUA LEOPOLDO NegativeTime performed: 1143UA PROTEIN DIPSTICK [id number] 11:44:00 Test Item Value Reference Range Interpretation Comments UA PROTEIN DIPSTICK POC (test code 15 (Trace) Neg -15 A = DPROUP) UA GLU: NEGATIVEKET UA NEGATIVEPH UA 6.0UA NIT NegativePROT UA 15 (TRACE)BL UA NEGATIVEUA LEOPOLDO NegativeTime performed: 1143UA NITRITE DIPSTICK [id number] 11:44:00 Test Item Value Reference Range Interpretation Comments UA NITRITE DIPSTICK POC (test code = Negative Negative NITUP) UA GLU: NEGATIVEKET UA NEGATIVEPH UA 6.0UA NIT NegativePROT UA 15 (TRACE)BL UA NEGATIVEUA LEOPOLDO NegativeTime performed: 1143UA LEUKOCYTE ESTERASE [id number] 11:44:00 Test Item Value Reference Range Interpretation Comments UA LEUKOCYTE ESTERASE POC (test code = NEGATIVE LEUUPOC) UA GLU: NEGATIVEKET UA NEGATIVEPH UA 6.0UA NIT NegativePROT UA 15 (TRACE)BL UA NEGATIVEUA LEOPOLDO NegativeTime performed: 1143UA GLUCOSE DIPSTIC [id number] 11:44:00 Test Item Value Reference Range Interpretation Comments UA GLUCOSE DIPSTIC POC (test code = Negative Negative GLUUP) UA GLU: NEGATIVEKET UA NEGATIVEPH UA 6.0UA NIT NegativePROT UA 15 (TRACE)BL UA NEGATIVEUA LEOPOLDO NegativeTime performed: 1143UA KETONE DIPSTICK [id number] 11:44:00 Test Item Value Reference Range Interpretation Comments UA KETONE DIPSTICK POC (test code = Negative Negative KETUP) UA GLU: NEGATIVEKET UA NEGATIVEPH UA 6.0UA NIT NegativePROT UA 15 (TRACE)BL UA NEGATIVEUA LEOPOLDO NegativeTime performed: 1143UA BLOOD DIPSTIC [id number] 11:44:00 Test Item Value Reference Range Interpretation Comments UA BLOOD DIPSTIC POC (test code = Negative NEGATIVE BLUP) UA GLU: NEGATIVEKET UA NEGATIVEPH UA 6.0UA NIT NegativePROT UA 15 (TRACE)BL UA NEGATIVEUA LEOPOLDO NegativeTime performed: 1143UA PH DIPSTIC [id number] 11:44:00 Test Item Value Reference Range Interpretation Comments UA PH DIPSTIC POC (test code = PHUP) 6 5-8 N UA GLU: NEGATIVEKET UA NEGATIVEPH UA 6.0UA NIT NegativePROT UA 15 (TRACE)BL UA NEGATIVEUA LEOPOLDO NegativeTime performed: 1143UA PROTEIN DIPSTICK [id number] 11:44:00 Test Item Value Reference Range Interpretation Comments UA PROTEIN DIPSTICK POC (test code 15 (Trace) Neg -15 A = DPROUP) UA GLU: NEGATIVEKET UA NEGATIVEPH UA 6.0UA NIT NegativePROT UA 15 (TRACE)BL UA NEGATIVEUA LEOPOLDO NegativeTime performed: 1143UA NITRITE DIPSTICK [id number] 11:44:00 Test Item Value Reference Range Interpretation Comments UA NITRITE DIPSTICK POC (test code = Negative Negative NITUP) UA GLU: NEGATIVEKET UA NEGATIVEPH UA 6.0UA NIT NegativePROT UA 15 (TRACE)BL UA NEGATIVEUA LEOPOLDO NegativeTime performed: 1143UA LEUKOCYTE ESTERASE [id number] 11:44:00 Test Item Value Reference Range Interpretation Comments UA LEUKOCYTE ESTERASE POC (test code NEGATIVE NEGATIVE = LEUUPOC) UA GLU: NEGATIVEKET UA NEGATIVEPH UA 6.0UA NIT NegativePROT UA 15 (TRACE)BL UA NEGATIVEUA LEOPOLDO NegativeTime performed: 1143FETAL [id number] 14:53:00 Test Item Value Reference Range Interpretation Comments FIBRONECTIN (test code = FFN) NEGATIVE URINALYSIS [id number] 13:42:00 Test Item Value Reference Range Interpretation Comments UA COLOR (test code = Light-Yellow YELLOW COLU) UA APPEARANCE (test code CLEAR CLEAR = APPU) UA GLUCOSE DIPSTICK (test NEGATIVE mg/dL NEGATIVE code = DGLUU) UA BILIRUBIN DIPSTICK NEGATIVE mg/dL NEGATIVE (test code = BILU) UA KETONE DIPSTICK (test NEGATIVE mg/dL NEGATIVE code = KETU) UA SPECIFIC GRAVITY (test 1.011 1.001-1.035 code = SGU) UA BLOOD DIPSTICK (test Negative mg/dL NEGATIVE code = ZENA) UA PH DIPSTICK (test code 6.5 5.0-8.0 = RAMONA) UA PROTEIN DIPSTICK (test NEGATIVE mg/dL NEGATIVE code = PROU) UA UROBILINIOGEN DIPSTICK Normal mg/dL NEGATIVE (test code = URO) UA NITRITE DIPSTICK (test NEGATIVE NEGATIVE code = FILIPPO) UA LEUKOCYTE ESTERASE W 500 Leopoldo/uL (3+) NEGATIVE A REFLEX (test code = Leopoldo/uL LEUUR) UA WBC (test code = WBCU) 11-20 per HPF 0-5 A UA RBC (test code = RBCU) 0-2 #/HPF 0-5 UA EPITHELIAL CELLS (test MANY per HPF FEW code = EPIU) UA BACTERIA (test code = FEW #/HPF NONE A BACU) UA MUCUS (test code = FEW #/LPF FEW MUCU) URINALYSIS [id number] 13:39:00 Test Item Value Reference Range Interpretation Comments UA COLOR (test code = Light-Yellow YELLOW COLU) UA APPEARANCE (test code CLEAR CLEAR = APPU) UA GLUCOSE DIPSTICK (test NEGATIVE mg/dL NEGATIVE code = DGLUU) UA BILIRUBIN DIPSTICK NEGATIVE mg/dL NEGATIVE (test code = BILU) UA KETONE DIPSTICK (test NEGATIVE mg/dL NEGATIVE code = KETU) UA SPECIFIC GRAVITY (test 1.011 1.001-1.035 code = SGU) UA BLOOD DIPSTICK (test Negative mg/dL NEGATIVE code = ZENA) UA PH DIPSTICK (test code 6.5 5.0-8.0 = RAMONA) UA PROTEIN DIPSTICK (test NEGATIVE mg/dL NEGATIVE code = PROU) UA UROBILINIOGEN DIPSTICK Normal mg/dL NEGATIVE (test code = URO) UA NITRITE DIPSTICK (test NEGATIVE NEGATIVE code = FILIPPO) UA LEUKOCYTE ESTERASE W 500 Leopoldo/uL (3+) NEGATIVE A REFLEX (test code = Leopoldo/uL LEUUR) UA WBC (test code = WBCU) per HPF 0-5 UA RBC (test code = RBCU) per HPF 0-5 UA EPITHELIAL CELLS (test per HPF Few code = EPIU) UA BACTERIA (test code = per HPF NONE BACU) URINALYSIS [id number] 13:39:00 Test Item Value Reference Range Interpretation Comments UA COLOR (test code = Light-Yellow YELLOW COLU) UA APPEARANCE (test code CLEAR CLEAR = APPU) UA GLUCOSE DIPSTICK (test NEGATIVE mg/dL NEGATIVE code = DGLUU) UA BILIRUBIN DIPSTICK NEGATIVE mg/dL NEGATIVE (test code = BILU) UA KETONE DIPSTICK (test NEGATIVE mg/dL NEGATIVE code = KETU) UA SPECIFIC GRAVITY (test 1.011 1.001-1.035 code = SGU) UA BLOOD DIPSTICK (test Negative mg/dL NEGATIVE code = ZENA) UA PH DIPSTICK (test code 6.5 5.0-8.0 = RAMONA) UA PROTEIN DIPSTICK (test NEGATIVE mg/dL NEGATIVE code = PROU) UA UROBILINIOGEN DIPSTICK Normal mg/dL NEGATIVE (test code = URO) UA NITRITE DIPSTICK (test NEGATIVE NEGATIVE code = FILIPPO) UA LEUKOCYTE ESTERASE W 500 Leopoldo/uL (3+) NEGATIVE A REFLEX (test code = Leopoldo/uL LEUUR) UA WBC (test code = WBCU) per HPF 0-5 UA RBC (test code = RBCU) per HPF 0-5 UA EPITHELIAL CELLS (test per HPF Few code = EPIU) UA BACTERIA (test code = per HPF NONE BACU) ROM [id number] 13:38:00 Test Item Value Reference Range Interpretation Comments ROM PLUS (test code = AMNI) NEGATIVE NEGATIVE UA GLUCOSE DIPSTIC [id number] 10:43:00 Test Item Value Reference Range Interpretation Comments UA GLUCOSE DIPSTIC POC (test code = Negative Negative GLUUP) UA GLU: NEGATIVEKET UA NEGATIVEPH UA 6.0UA NIT NegativePROT UA NEGATIVEBL UA NEGATIVEUA LEOPOLDO NegativeTime performed: 1042UA KETONE DIPSTICK [id number] 10:43:00 Test Item Value Reference Range Interpretation Comments UA KETONE DIPSTICK POC (test code = Negative KETUP) UA GLU: NEGATIVEKET UA NEGATIVEPH UA 6.0UA NIT NegativePROT UA NEGATIVEBL UA NEGATIVEUA LEOPOLDO NegativeTime performed: 1042UA BLOOD DIPSTIC [id number] 10:43:00 Test Item Value Reference Range Interpretation Comments UA BLOOD DIPSTIC POC (test code = BLUP) NEGATIVE UA GLU: NEGATIVEKET UA NEGATIVEPH UA 6.0UA NIT NegativePROT UA NEGATIVEBL UA NEGATIVEUA LEOPOLDO NegativeTime performed: 1042UA PH DIPSTIC [id number] 10:43:00 Test Item Value Reference Range Interpretation Comments UA PH DIPSTIC POC (test code = PHUP) 5-8 UA GLU: NEGATIVEKET UA NEGATIVEPH UA 6.0UA NIT NegativePROT UA NEGATIVEBL UA NEGATIVEUA LEOPOLDO NegativeTime performed: 1042UA PROTEIN DIPSTICK [id number] 10:43:00 Test Item Value Reference Range Interpretation Comments UA PROTEIN DIPSTICK POC (test code = Neg -15 DPROUP) UA GLU: NEGATIVEKET UA NEGATIVEPH UA 6.0UA NIT NegativePROT UA NEGATIVEBL UA NEGATIVEUA LEOPOLDO NegativeTime performed: 1042UA NITRITE DIPSTICK [id number] 10:43:00 Test Item Value Reference Range Interpretation Comments UA NITRITE DIPSTICK POC (test code = Negative NITUP) UA GLU: NEGATIVEKET UA NEGATIVEPH UA 6.0UA NIT NegativePROT UA NEGATIVEBL UA NEGATIVEUA LEOPOLDO NegativeTime performed: 1042UA LEUKOCYTE ESTERASE [id number] 10:43:00 Test Item Value Reference Range Interpretation Comments UA LEUKOCYTE ESTERASE POC (test code = NEGATIVE LEUUPOC) UA GLU: NEGATIVEKET UA NEGATIVEPH UA 6.0UA NIT NegativePROT UA NEGATIVEBL UA NEGATIVEUA LEOPOLDO NegativeTime performed: 1042UA GLUCOSE DIPSTIC [id number] 10:43:00 Test Item Value Reference Range Interpretation Comments UA GLUCOSE DIPSTIC POC (test code = Negative Negative GLUUP) UA GLU: NEGATIVEKET UA NEGATIVEPH UA 6.0UA NIT NegativePROT UA NEGATIVEBL UA NEGATIVEUA LEOPOLDO NegativeTime performed: 1042UA KETONE DIPSTICK [id number] 10:43:00 Test Item Value Reference Range Interpretation Comments UA KETONE DIPSTICK POC (test code = Negative Negative KETUP) UA GLU: NEGATIVEKET UA NEGATIVEPH UA 6.0UA NIT NegativePROT UA NEGATIVEBL UA NEGATIVEUA LEOPOLDO NegativeTime performed: 1042UA BLOOD DIPSTIC [id number] 10:43:00 Test Item Value Reference Range Interpretation Comments UA BLOOD DIPSTIC POC (test code = BLUP) NEGATIVE UA GLU: NEGATIVEKET UA NEGATIVEPH UA 6.0UA NIT NegativePROT UA NEGATIVEBL UA NEGATIVEUA LEOPOLDO NegativeTime performed: 1042UA PH DIPSTIC [id number] 10:43:00 Test Item Value Reference Range Interpretation Comments UA PH DIPSTIC POC (test code = PHUP) 5-8 UA GLU: NEGATIVEKET UA NEGATIVEPH UA 6.0UA NIT NegativePROT UA NEGATIVEBL UA NEGATIVEUA LEOPOLDO NegativeTime performed: 1042UA PROTEIN DIPSTICK [id number] 10:43:00 Test Item Value Reference Range Interpretation Comments UA PROTEIN DIPSTICK POC (test code = Neg -15 DPROUP) UA GLU: NEGATIVEKET UA NEGATIVEPH UA 6.0UA NIT NegativePROT UA NEGATIVEBL UA NEGATIVEUA LEOPOLDO NegativeTime performed: 1042UA NITRITE DIPSTICK [id number] 10:43:00 Test Item Value Reference Range Interpretation Comments UA NITRITE DIPSTICK POC (test code = Negative NITUP) UA GLU: NEGATIVEKET UA NEGATIVEPH UA 6.0UA NIT NegativePROT UA NEGATIVEBL UA NEGATIVEUA LEOPOLDO NegativeTime performed: 1042UA LEUKOCYTE ESTERASE [id number] 10:43:00 Test Item Value Reference Range Interpretation Comments UA LEUKOCYTE ESTERASE POC (test code = NEGATIVE LEUUPOC) UA GLU: NEGATIVEKET UA NEGATIVEPH UA 6.0UA NIT NegativePROT UA NEGATIVEBL UA NEGATIVEUA LEOPOLDO NegativeTime performed: 1042UA GLUCOSE DIPSTIC [id number] 10:43:00 Test Item Value Reference Range Interpretation Comments UA GLUCOSE DIPSTIC POC (test code = Negative Negative GLUUP) UA GLU: NEGATIVEKET UA NEGATIVEPH UA 6.0UA NIT NegativePROT UA NEGATIVEBL UA NEGATIVEUA LEOPOLDO NegativeTime performed: 1042UA KETONE DIPSTICK [id number] 10:43:00 Test Item Value Reference Range Interpretation Comments UA KETONE DIPSTICK POC (test code = Negative Negative KETUP) UA GLU: NEGATIVEKET UA NEGATIVEPH UA 6.0UA NIT NegativePROT UA NEGATIVEBL UA NEGATIVEUA LEOPOLDO NegativeTime performed: 1042UA BLOOD DIPSTIC [id number] 10:43:00 Test Item Value Reference Range Interpretation Comments UA BLOOD DIPSTIC POC (test code = Negative NEGATIVE BLUP) UA GLU: NEGATIVEKET UA NEGATIVEPH UA 6.0UA NIT NegativePROT UA NEGATIVEBL UA NEGATIVEUA LEOPOLDO NegativeTime performed: 104UA PH DIPSTIC [id number] 10:43:00 Test Item Value Reference Range Interpretation Comments UA PH DIPSTIC POC (test code = PHUP) 5-8 UA GLU: NEGATIVEKET UA NEGATIVEPH UA 6.0UA NIT NegativePROT UA NEGATIVEBL UA NEGATIVEUA LEOPOLDO NegativeTime performed: 104UA PROTEIN DIPSTICK [id number] 10:43:00 Test Item Value Reference Range Interpretation Comments UA PROTEIN DIPSTICK POC (test code = Neg -15 DPROUP) UA GLU: NEGATIVEKET UA NEGATIVEPH UA 6.0UA NIT NegativePROT UA NEGATIVEBL UA NEGATIVEUA LEOPOLDO NegativeTime performed: 104UA NITRITE DIPSTICK [id number] 10:43:00 Test Item Value Reference Range Interpretation Comments UA NITRITE DIPSTICK POC (test code = Negative NITUP) UA GLU: NEGATIVEKET UA NEGATIVEPH UA 6.0UA NIT NegativePROT UA NEGATIVEBL UA NEGATIVEUA LEOPOLDO NegativeTime performed: 1041UA LEUKOCYTE ESTERASE [id number] 10:43:00 Test Item Value Reference Range Interpretation Comments UA LEUKOCYTE ESTERASE POC (test code = NEGATIVE LEUUPOC) UA GLU: NEGATIVEKET UA NEGATIVEPH UA 6.0UA NIT NegativePROT UA NEGATIVEBL UA NEGATIVEUA LEOPOLDO NegativeTime performed: 104UA GLUCOSE DIPSTIC [id number] 10:43:00 Test Item Value Reference Range Interpretation Comments UA GLUCOSE DIPSTIC POC (test code = Negative Negative GLUUP) UA GLU: NEGATIVEKET UA NEGATIVEPH UA 6.0UA NIT NegativePROT UA NEGATIVEBL UA NEGATIVEUA LEOPOLDO NegativeTime performed: 104UA KETONE DIPSTICK [id number] 10:43:00 Test Item Value Reference Range Interpretation Comments UA KETONE DIPSTICK POC (test code = Negative Negative KETUP) UA GLU: NEGATIVEKET UA NEGATIVEPH UA 6.0UA NIT NegativePROT UA NEGATIVEBL UA NEGATIVEUA LEOPOLDO NegativeTime performed: 1042UA BLOOD DIPSTIC [id number] 10:43:00 Test Item Value Reference Range Interpretation Comments UA BLOOD DIPSTIC POC (test code = Negative NEGATIVE BLUP) UA GLU: NEGATIVEKET UA NEGATIVEPH UA 6.0UA NIT NegativePROT UA NEGATIVEBL UA NEGATIVEUA LEOPOLDO NegativeTime performed: 1042UA PH DIPSTIC [id number] 10:43:00 Test Item Value Reference Range Interpretation Comments UA PH DIPSTIC POC (test code = PHUP) 6 5-8 N UA GLU: NEGATIVEKET UA NEGATIVEPH UA 6.0UA NIT NegativePROT UA NEGATIVEBL UA NEGATIVEUA LEOPOLDO NegativeTime performed: 1042UA PROTEIN DIPSTICK [id number] 10:43:00 Test Item Value Reference Range Interpretation Comments UA PROTEIN DIPSTICK POC (test code = Neg -15 DPROUP) UA GLU: NEGATIVEKET UA NEGATIVEPH UA 6.0UA NIT NegativePROT UA NEGATIVEBL UA NEGATIVEUA LEOPOLDO NegativeTime performed: 1042UA NITRITE DIPSTICK [id number] 10:43:00 Test Item Value Reference Range Interpretation Comments UA NITRITE DIPSTICK POC (test code = Negative NITUP) UA GLU: NEGATIVEKET UA NEGATIVEPH UA 6.0UA NIT NegativePROT UA NEGATIVEBL UA NEGATIVEUA LEOPOLDO NegativeTime performed: 1042UA LEUKOCYTE ESTERASE [id number] 10:43:00 Test Item Value Reference Range Interpretation Comments UA LEUKOCYTE ESTERASE POC (test code = NEGATIVE LEUUPOC) UA GLU: NEGATIVEKET UA NEGATIVEPH UA 6.0UA NIT NegativePROT UA NEGATIVEBL UA NEGATIVEUA LEOPOLDO NegativeTime performed: 1042UA GLUCOSE DIPSTIC [id number] 10:43:00 Test Item Value Reference Range Interpretation Comments UA GLUCOSE DIPSTIC POC (test code = Negative Negative GLUUP) UA GLU: NEGATIVEKET UA NEGATIVEPH UA 6.0UA NIT NegativePROT UA NEGATIVEBL UA NEGATIVEUA LEOPOLDO NegativeTime performed: 1042UA KETONE DIPSTICK [id number] 10:43:00 Test Item Value Reference Range Interpretation Comments UA KETONE DIPSTICK POC (test code = Negative Negative KETUP) UA GLU: NEGATIVEKET UA NEGATIVEPH UA 6.0UA NIT NegativePROT UA NEGATIVEBL UA NEGATIVEUA LEOPOLDO NegativeTime performed: 1042UA BLOOD DIPSTIC [id number] 10:43:00 Test Item Value Reference Range Interpretation Comments UA BLOOD DIPSTIC POC (test code = Negative NEGATIVE BLUP) UA GLU: NEGATIVEKET UA NEGATIVEPH UA 6.0UA NIT NegativePROT UA NEGATIVEBL UA NEGATIVEUA LEOPOLDO NegativeTime performed: 1042UA PH DIPSTIC [id number] 10:43:00 Test Item Value Reference Range Interpretation Comments UA PH DIPSTIC POC (test code = PHUP) 6 5-8 N UA GLU: NEGATIVEKET UA NEGATIVEPH UA 6.0UA NIT NegativePROT UA NEGATIVEBL UA NEGATIVEUA LEOPOLDO NegativeTime performed: 1042UA PROTEIN DIPSTICK [id number] 10:43:00 Test Item Value Reference Range Interpretation Comments UA PROTEIN DIPSTICK POC (test code = Negative Neg -15 DPROUP) UA GLU: NEGATIVEKET UA NEGATIVEPH UA 6.0UA NIT NegativePROT UA NEGATIVEBL UA NEGATIVEUA LEOPOLDO NegativeTime performed: 1042UA NITRITE DIPSTICK [id number] 10:43:00 Test Item Value Reference Range Interpretation Comments UA NITRITE DIPSTICK POC (test code = Negative NITUP) UA GLU: NEGATIVEKET UA NEGATIVEPH UA 6.0UA NIT NegativePROT UA NEGATIVEBL UA NEGATIVEUA LEOPOLDO NegativeTime performed: 1042UA LEUKOCYTE ESTERASE [id number] 10:43:00 Test Item Value Reference Range Interpretation Comments UA LEUKOCYTE ESTERASE POC (test code = NEGATIVE LEUUPOC) UA GLU: NEGATIVEKET UA NEGATIVEPH UA 6.0UA NIT NegativePROT UA NEGATIVEBL UA NEGATIVEUA LEOPOLDO NegativeTime performed: 104UA GLUCOSE DIPSTIC [id number] 10:43:00 Test Item Value Reference Range Interpretation Comments UA GLUCOSE DIPSTIC POC (test code = Negative Negative GLUUP) UA GLU: NEGATIVEKET UA NEGATIVEPH UA 6.0UA NIT NegativePROT UA NEGATIVEBL UA NEGATIVEUA LEOPOLDO NegativeTime performed: 1042UA KETONE DIPSTICK [id number] 10:43:00 Test Item Value Reference Range Interpretation Comments UA KETONE DIPSTICK POC (test code = Negative Negative KETUP) UA GLU: NEGATIVEKET UA NEGATIVEPH UA 6.0UA NIT NegativePROT UA NEGATIVEBL UA NEGATIVEUA LEOPOLDO NegativeTime performed: 1042UA BLOOD DIPSTIC [id number] 10:43:00 Test Item Value Reference Range Interpretation Comments UA BLOOD DIPSTIC POC (test code = Negative NEGATIVE BLUP) UA GLU: NEGATIVEKET UA NEGATIVEPH UA 6.0UA NIT NegativePROT UA NEGATIVEBL UA NEGATIVEUA LEOPOLDO NegativeTime performed: 1042UA PH DIPSTIC [id number] 10:43:00 Test Item Value Reference Range Interpretation Comments UA PH DIPSTIC POC (test code = PHUP) 6 5-8 N UA GLU: NEGATIVEKET UA NEGATIVEPH UA 6.0UA NIT NegativePROT UA NEGATIVEBL UA NEGATIVEUA LEOPOLDO NegativeTime performed: 1042UA PROTEIN DIPSTICK [id number] 10:43:00 Test Item Value Reference Range Interpretation Comments UA PROTEIN DIPSTICK POC (test code = Negative Neg -15 DPROUP) UA GLU: NEGATIVEKET UA NEGATIVEPH UA 6.0UA NIT NegativePROT UA NEGATIVEBL UA NEGATIVEUA LEOPOLDO NegativeTime performed: 1042UA NITRITE DIPSTICK [id number] 10:43:00 Test Item Value Reference Range Interpretation Comments UA NITRITE DIPSTICK POC (test code = Negative Negative NITUP) UA GLU: NEGATIVEKET UA NEGATIVEPH UA 6.0UA NIT NegativePROT UA NEGATIVEBL UA NEGATIVEUA LEOPOLDO NegativeTime performed: 1042UA LEUKOCYTE ESTERASE [id number] 10:43:00 Test Item Value Reference Range Interpretation Comments UA LEUKOCYTE ESTERASE POC (test code = NEGATIVE LEUUPOC) UA GLU: NEGATIVEKET UA NEGATIVEPH UA 6.0UA NIT NegativePROT UA NEGATIVEBL UA NEGATIVEUA LEOPOLDO NegativeTime performed: 104UA GLUCOSE DIPSTIC [id number] 10:43:00 Test Item Value Reference Range Interpretation Comments UA GLUCOSE DIPSTIC POC (test code = Negative Negative GLUUP) UA GLU: NEGATIVEKET UA NEGATIVEPH UA 6.0UA NIT NegativePROT UA NEGATIVEBL UA NEGATIVEUA LEOPOLDO NegativeTime performed: 104UA KETONE DIPSTICK [id number] 10:43:00 Test Item Value Reference Range Interpretation Comments UA KETONE DIPSTICK POC (test code = Negative Negative KETUP) UA GLU: NEGATIVEKET UA NEGATIVEPH UA 6.0UA NIT NegativePROT UA NEGATIVEBL UA NEGATIVEUA LEOPOLDO NegativeTime performed: 1042UA BLOOD DIPSTIC [id number] 10:43:00 Test Item Value Reference Range Interpretation Comments UA BLOOD DIPSTIC POC (test code = Negative NEGATIVE BLUP) UA GLU: NEGATIVEKET UA NEGATIVEPH UA 6.0UA NIT NegativePROT UA NEGATIVEBL UA NEGATIVEUA LEOPOLDO NegativeTime performed: 1042UA PH DIPSTIC [id number] 10:43:00 Test Item Value Reference Range Interpretation Comments UA PH DIPSTIC POC (test code = PHUP) 6 5-8 N UA GLU: NEGATIVEKET UA NEGATIVEPH UA 6.0UA NIT NegativePROT UA NEGATIVEBL UA NEGATIVEUA LEOPOLDO NegativeTime performed: 1042UA PROTEIN DIPSTICK [id number] 10:43:00 Test Item Value Reference Range Interpretation Comments UA PROTEIN DIPSTICK POC (test code = Negative Neg -15 DPROUP) UA GLU: NEGATIVEKET UA NEGATIVEPH UA 6.0UA NIT NegativePROT UA NEGATIVEBL UA NEGATIVEUA LEOPOLDO NegativeTime performed: 1042UA NITRITE DIPSTICK [id number] 10:43:00 Test Item Value Reference Range Interpretation Comments UA NITRITE DIPSTICK POC (test code = Negative Negative NITUP) UA GLU: NEGATIVEKET UA NEGATIVEPH UA 6.0UA NIT NegativePROT UA NEGATIVEBL UA NEGATIVEUA LEOPOLDO NegativeTime performed: 1042UA LEUKOCYTE ESTERASE [id number] 10:43:00 Test Item Value Reference Range Interpretation Comments UA LEUKOCYTE ESTERASE POC (test code NEGATIVE NEGATIVE = LEUUPOC) UA GLU: NEGATIVEKET UA NEGATIVEPH UA 6.0UA NIT NegativePROT UA NEGATIVEBL UA NEGATIVEUA LEOPOLDO NegativeTime performed: 104UA GLUCOSE DIPSTIC [id number] 14:37:00 Test Item Value Reference Range Interpretation Comments UA GLUCOSE DIPSTIC POC (test code = Negative Negative GLUUP) UA GLU: NEGATIVEKET UA 15 (1+)PH UA 5.0UA NIT NegativePROT UA 15 (TRACE)BL UA NEGATIVEUA LEOPOLDO 1+ (Mod)Time performed: 1435UA KETONE DIPSTICK [id number] 14:37:00 Test Item Value Reference Range Interpretation Comments UA KETONE DIPSTICK POC (test code = Negative KETUP) UA GLU: NEGATIVEKET UA 15 (1+)PH UA 5.0UA NIT NegativePROT UA 15 (TRACE)BL UA NEGATIVEUA LEOPOLDO 1+ (Mod)Time performed: 1435UA BLOOD DIPSTIC [id number] 14:37:00 Test Item Value Reference Range Interpretation Comments UA BLOOD DIPSTIC POC (test code = BLUP) NEGATIVE UA GLU: NEGATIVEKET UA 15 (1+)PH UA 5.0UA NIT NegativePROT UA 15 (TRACE)BL UA NEGATIVEUA LEOPOLDO 1+ (Mod)Time performed: 1435UA PH DIPSTIC [id number] 14:37:00 Test Item Value Reference Range Interpretation Comments UA PH DIPSTIC POC (test code = PHUP) 5-8 UA GLU: NEGATIVEKET UA 15 (1+)PH UA 5.0UA NIT NegativePROT UA 15 (TRACE)BL UA NEGATIVEUA LEOPOLDO 1+ (Mod)Time performed: 1435UA PROTEIN DIPSTICK [id number] 14:37:00 Test Item Value Reference Range Interpretation Comments UA PROTEIN DIPSTICK POC (test code = Neg -15 DPROUP) UA GLU: NEGATIVEKET UA 15 (1+)PH UA 5.0UA NIT NegativePROT UA 15 (TRACE)BL UA NEGATIVEUA LEOPOLDO 1+ (Mod)Time performed: 1435UA NITRITE DIPSTICK [id number] 14:37:00 Test Item Value Reference Range Interpretation Comments UA NITRITE DIPSTICK POC (test code = Negative NITUP) UA GLU: NEGATIVEKET UA 15 (1+)PH UA 5.0UA NIT NegativePROT UA 15 (TRACE)BL UA NEGATIVEUA LEOPOLDO 1+ (Mod)Time performed: 1435UA LEUKOCYTE ESTERASE [id number] 14:37:00 Test Item Value Reference Range Interpretation Comments UA LEUKOCYTE ESTERASE POC (test code = NEGATIVE LEUUPOC) UA GLU: NEGATIVEKET UA 15 (1+)PH UA 5.0UA NIT NegativePROT UA 15 (TRACE)BL UA NEGATIVEUA LEOPOLDO 1+ (Mod)Time performed: 1435UA GLUCOSE DIPSTIC [id number] 14:37:00 Test Item Value Reference Range Interpretation Comments UA GLUCOSE DIPSTIC POC (test code = Negative Negative GLUUP) UA GLU: NEGATIVEKET UA 15 (1+)PH UA 5.0UA NIT NegativePROT UA 15 (TRACE)BL UA NEGATIVEUA LEOPOLDO 1+ (Mod)Time performed: 1435UA KETONE DIPSTICK [id number] 14:37:00 Test Item Value Reference Range Interpretation Comments UA KETONE DIPSTICK POC (test code = 15 Negative A KETUP) UA GLU: NEGATIVEKET UA 15 (1+)PH UA 5.0UA NIT NegativePROT UA 15 (TRACE)BL UA NEGATIVEUA LEOPOLDO 1+ (Mod)Time performed: 1435UA BLOOD DIPSTIC [id number] 14:37:00 Test Item Value Reference Range Interpretation Comments UA BLOOD DIPSTIC POC (test code = BLUP) NEGATIVE UA GLU: NEGATIVEKET UA 15 (1+)PH UA 5.0UA NIT NegativePROT UA 15 (TRACE)BL UA NEGATIVEUA LEOPOLDO 1+ (Mod)Time performed: 1435UA PH DIPSTIC [id number] 14:37:00 Test Item Value Reference Range Interpretation Comments UA PH DIPSTIC POC (test code = PHUP) 5-8 UA GLU: NEGATIVEKET UA 15 (1+)PH UA 5.0UA NIT NegativePROT UA 15 (TRACE)BL UA NEGATIVEUA LEOPOLDO 1+ (Mod)Time performed: 1435UA PROTEIN DIPSTICK [id number] 14:37:00 Test Item Value Reference Range Interpretation Comments UA PROTEIN DIPSTICK POC (test code = Neg -15 DPROUP) UA GLU: NEGATIVEKET UA 15 (1+)PH UA 5.0UA NIT NegativePROT UA 15 (TRACE)BL UA NEGATIVEUA LEOPOLDO 1+ (Mod)Time performed: 1435UA NITRITE DIPSTICK [id number] 14:37:00 Test Item Value Reference Range Interpretation Comments UA NITRITE DIPSTICK POC (test code = Negative NITUP) UA GLU: NEGATIVEKET UA 15 (1+)PH UA 5.0UA NIT NegativePROT UA 15 (TRACE)BL UA NEGATIVEUA LEOPOLDO 1+ (Mod)Time performed: 143UA LEUKOCYTE ESTERASE [id number] 14:37:00 Test Item Value Reference Range Interpretation Comments UA LEUKOCYTE ESTERASE POC (test code = NEGATIVE LEUUPOC) UA GLU: NEGATIVEKET UA 15 (1+)PH UA 5.0UA NIT NegativePROT UA 15 (TRACE)BL UA NEGATIVEUA LEOPOLDO 1+ (Mod)Time performed: 1435UA GLUCOSE DIPSTIC [id number] 14:37:00 Test Item Value Reference Range Interpretation Comments UA GLUCOSE DIPSTIC POC (test code = Negative Negative GLUUP) UA GLU: NEGATIVEKET UA 15 (1+)PH UA 5.0UA NIT NegativePROT UA 15 (TRACE)BL UA NEGATIVEUA LEOPOLDO 1+ (Mod)Time performed: 1435UA KETONE DIPSTICK [id number] 14:37:00 Test Item Value Reference Range Interpretation Comments UA KETONE DIPSTICK POC (test code = 15 Negative A KETUP) UA GLU: NEGATIVEKET UA 15 (1+)PH UA 5.0UA NIT NegativePROT UA 15 (TRACE)BL UA NEGATIVEUA LEOPOLDO 1+ (Mod)Time performed: 1435UA BLOOD DIPSTIC [id number] 14:37:00 Test Item Value Reference Range Interpretation Comments UA BLOOD DIPSTIC POC (test code = Negative NEGATIVE BLUP) UA GLU: NEGATIVEKET UA 15 (1+)PH UA 5.0UA NIT NegativePROT UA 15 (TRACE)BL UA NEGATIVEUA LEOPOLDO 1+ (Mod)Time performed: 1435UA PH DIPSTIC [id number] 14:37:00 Test Item Value Reference Range Interpretation Comments UA PH DIPSTIC POC (test code = PHUP) 5-8 UA GLU: NEGATIVEKET UA 15 (1+)PH UA 5.0UA NIT NegativePROT UA 15 (TRACE)BL UA NEGATIVEUA LEOPOLDO 1+ (Mod)Time performed: 1435UA PROTEIN DIPSTICK [id number] 14:37:00 Test Item Value Reference Range Interpretation Comments UA PROTEIN DIPSTICK POC (test code = Neg -15 DPROUP) UA GLU: NEGATIVEKET UA 15 (1+)PH UA 5.0UA NIT NegativePROT UA 15 (TRACE)BL UA NEGATIVEUA LEOPOLDO 1+ (Mod)Time performed: 1435UA NITRITE DIPSTICK [id number] 14:37:00 Test Item Value Reference Range Interpretation Comments UA NITRITE DIPSTICK POC (test code = Negative NITUP) UA GLU: NEGATIVEKET UA 15 (1+)PH UA 5.0UA NIT NegativePROT UA 15 (TRACE)BL UA NEGATIVEUA LEOPOLDO 1+ (Mod)Time performed: 1435UA LEUKOCYTE ESTERASE [id number] 14:37:00 Test Item Value Reference Range Interpretation Comments UA LEUKOCYTE ESTERASE POC (test code = NEGATIVE LEUUPOC) UA GLU: NEGATIVEKET UA 15 (1+)PH UA 5.0UA NIT NegativePROT UA 15 (TRACE)BL UA NEGATIVEUA LEOPOLDO 1+ (Mod)Time performed: 1435UA GLUCOSE DIPSTIC [id number] 14:37:00 Test Item Value Reference Range Interpretation Comments UA GLUCOSE DIPSTIC POC (test code = Negative Negative GLUUP) UA GLU: NEGATIVEKET UA 15 (1+)PH UA 5.0UA NIT NegativePROT UA 15 (TRACE)BL UA NEGATIVEUA LEOPOLDO 1+ (Mod)Time performed: 1435UA KETONE DIPSTICK [id number] 14:37:00 Test Item Value Reference Range Interpretation Comments UA KETONE DIPSTICK POC (test code = 15 Negative A KETUP) UA GLU: NEGATIVEKET UA 15 (1+)PH UA 5.0UA NIT NegativePROT UA 15 (TRACE)BL UA NEGATIVEUA LEOPOLDO 1+ (Mod)Time performed: 1435UA BLOOD DIPSTIC [id number] 14:37:00 Test Item Value Reference Range Interpretation Comments UA BLOOD DIPSTIC POC (test code = Negative NEGATIVE BLUP) UA GLU: NEGATIVEKET UA 15 (1+)PH UA 5.0UA NIT NegativePROT UA 15 (TRACE)BL UA NEGATIVEUA LEOPOLDO 1+ (Mod)Time performed: 1435UA PH DIPSTIC [id number] 14:37:00 Test Item Value Reference Range Interpretation Comments UA PH DIPSTIC POC (test code = PHUP) 5 5-8 N UA GLU: NEGATIVEKET UA 15 (1+)PH UA 5.0UA NIT NegativePROT UA 15 (TRACE)BL UA NEGATIVEUA LEOPOLDO 1+ (Mod)Time performed: 1435UA PROTEIN DIPSTICK [id number] 14:37:00 Test Item Value Reference Range Interpretation Comments UA PROTEIN DIPSTICK POC (test code = Neg -15 DPROUP) UA GLU: NEGATIVEKET UA 15 (1+)PH UA 5.0UA NIT NegativePROT UA 15 (TRACE)BL UA NEGATIVEUA LEOPOLDO 1+ (Mod)Time performed: 1435UA NITRITE DIPSTICK [id number] 14:37:00 Test Item Value Reference Range Interpretation Comments UA NITRITE DIPSTICK POC (test code = Negative NITUP) UA GLU: NEGATIVEKET UA 15 (1+)PH UA 5.0UA NIT NegativePROT UA 15 (TRACE)BL UA NEGATIVEUA LEOPOLDO 1+ (Mod)Time performed: 1435UA LEUKOCYTE ESTERASE [id number] 14:37:00 Test Item Value Reference Range Interpretation Comments UA LEUKOCYTE ESTERASE POC (test code = NEGATIVE LEUUPOC) UA GLU: NEGATIVEKET UA 15 (1+)PH UA 5.0UA NIT NegativePROT UA 15 (TRACE)BL UA NEGATIVEUA LEOPOLDO 1+ (Mod)Time performed: 1435UA GLUCOSE DIPSTIC [id number] 14:37:00 Test Item Value Reference Range Interpretation Comments UA GLUCOSE DIPSTIC POC (test code = Negative Negative GLUUP) UA GLU: NEGATIVEKET UA 15 (1+)PH UA 5.0UA NIT NegativePROT UA 15 (TRACE)BL UA NEGATIVEUA LEOPOLDO 1+ (Mod)Time performed: 1435UA KETONE DIPSTICK [id number] 14:37:00 Test Item Value Reference Range Interpretation Comments UA KETONE DIPSTICK POC (test code = 15 Negative A KETUP) UA GLU: NEGATIVEKET UA 15 (1+)PH UA 5.0UA NIT NegativePROT UA 15 (TRACE)BL UA NEGATIVEUA LEOPOLDO 1+ (Mod)Time performed: 1435UA BLOOD DIPSTIC [id number] 14:37:00 Test Item Value Reference Range Interpretation Comments UA BLOOD DIPSTIC POC (test code = Negative NEGATIVE BLUP) UA GLU: NEGATIVEKET UA 15 (1+)PH UA 5.0UA NIT NegativePROT UA 15 (TRACE)BL UA NEGATIVEUA LEOPOLDO 1+ (Mod)Time performed: 1435UA PH DIPSTIC [id number] 14:37:00 Test Item Value Reference Range Interpretation Comments UA PH DIPSTIC POC (test code = PHUP) 5 5-8 N UA GLU: NEGATIVEKET UA 15 (1+)PH UA 5.0UA NIT NegativePROT UA 15 (TRACE)BL UA NEGATIVEUA LEOPOLDO 1+ (Mod)Time performed: 1435UA PROTEIN DIPSTICK [id number] 14:37:00 Test Item Value Reference Range Interpretation Comments UA PROTEIN DIPSTICK POC (test code 15 (Trace) Neg -15 A = DPROUP) UA GLU: NEGATIVEKET UA 15 (1+)PH UA 5.0UA NIT NegativePROT UA 15 (TRACE)BL UA NEGATIVEUA LEOPOLDO 1+ (Mod)Time performed: 1435UA NITRITE DIPSTICK [id number] 14:37:00 Test Item Value Reference Range Interpretation Comments UA NITRITE DIPSTICK POC (test code = Negative NITUP) UA GLU: NEGATIVEKET UA 15 (1+)PH UA 5.0UA NIT NegativePROT UA 15 (TRACE)BL UA NEGATIVEUA LEOPOLDO 1+ (Mod)Time performed: 1435UA LEUKOCYTE ESTERASE [id number] 14:37:00 Test Item Value Reference Range Interpretation Comments UA LEUKOCYTE ESTERASE POC (test code = NEGATIVE LEUUPOC) UA GLU: NEGATIVEKET UA 15 (1+)PH UA 5.0UA NIT NegativePROT UA 15 (TRACE)BL UA NEGATIVEUA LEOPOLDO 1+ (Mod)Time performed: 1435UA GLUCOSE DIPSTIC [id number] 14:37:00 Test Item Value Reference Range Interpretation Comments UA GLUCOSE DIPSTIC POC (test code = Negative Negative GLUUP) UA GLU: NEGATIVEKET UA 15 (1+)PH UA 5.0UA NIT NegativePROT UA 15 (TRACE)BL UA NEGATIVEUA LEOPOLDO 1+ (Mod)Time performed: 1435UA KETONE DIPSTICK [id number] 14:37:00 Test Item Value Reference Range Interpretation Comments UA KETONE DIPSTICK POC (test code = 15 Negative A KETUP) UA GLU: NEGATIVEKET UA 15 (1+)PH UA 5.0UA NIT NegativePROT UA 15 (TRACE)BL UA NEGATIVEUA LEOPOLDO 1+ (Mod)Time performed: 1435UA BLOOD DIPSTIC [id number] 14:37:00 Test Item Value Reference Range Interpretation Comments UA BLOOD DIPSTIC POC (test code = Negative NEGATIVE BLUP) UA GLU: NEGATIVEKET UA 15 (1+)PH UA 5.0UA NIT NegativePROT UA 15 (TRACE)BL UA NEGATIVEUA LEOPOLDO 1+ (Mod)Time performed: 1435UA PH DIPSTIC [id number] 14:37:00 Test Item Value Reference Range Interpretation Comments UA PH DIPSTIC POC (test code = PHUP) 5 5-8 N UA GLU: NEGATIVEKET UA 15 (1+)PH UA 5.0UA NIT NegativePROT UA 15 (TRACE)BL UA NEGATIVEUA LEOPOLDO 1+ (Mod)Time performed: 1435UA PROTEIN DIPSTICK [id number] 14:37:00 Test Item Value Reference Range Interpretation Comments UA PROTEIN DIPSTICK POC (test code 15 (Trace) Neg -15 A = DPROUP) UA GLU: NEGATIVEKET UA 15 (1+)PH UA 5.0UA NIT NegativePROT UA 15 (TRACE)BL UA NEGATIVEUA LEOPOLDO 1+ (Mod)Time performed: 1435UA NITRITE DIPSTICK [id number] 14:37:00 Test Item Value Reference Range Interpretation Comments UA NITRITE DIPSTICK POC (test code = Negative Negative NITUP) UA GLU: NEGATIVEKET UA 15 (1+)PH UA 5.0UA NIT NegativePROT UA 15 (TRACE)BL UA NEGATIVEUA LEOPOLDO 1+ (Mod)Time performed: 1435UA LEUKOCYTE ESTERASE [id number] 14:37:00 Test Item Value Reference Range Interpretation Comments UA LEUKOCYTE ESTERASE POC (test code = NEGATIVE LEUUPOC) UA GLU: NEGATIVEKET UA 15 (1+)PH UA 5.0UA NIT NegativePROT UA 15 (TRACE)BL UA NEGATIVEUA LEOPOLDO 1+ (Mod)Time performed: 1435UA GLUCOSE DIPSTIC [id number] 14:37:00 Test Item Value Reference Range Interpretation Comments UA GLUCOSE DIPSTIC POC (test code = Negative Negative GLUUP) UA GLU: NEGATIVEKET UA 15 (1+)PH UA 5.0UA NIT NegativePROT UA 15 (TRACE)BL UA NEGATIVEUA LEOPOLDO 1+ (Mod)Time performed: 1435UA KETONE DIPSTICK [id number] 14:37:00 Test Item Value Reference Range Interpretation Comments UA KETONE DIPSTICK POC (test code = 15 Negative A KETUP) UA GLU: NEGATIVEKET UA 15 (1+)PH UA 5.0UA NIT NegativePROT UA 15 (TRACE)BL UA NEGATIVEUA LEOPOLDO 1+ (Mod)Time performed: 1435UA BLOOD DIPSTIC [id number] 14:37:00 Test Item Value Reference Range Interpretation Comments UA BLOOD DIPSTIC POC (test code = Negative NEGATIVE BLUP) UA GLU: NEGATIVEKET UA 15 (1+)PH UA 5.0UA NIT NegativePROT UA 15 (TRACE)BL UA NEGATIVEUA LEOPOLDO 1+ (Mod)Time performed: 1435UA PH DIPSTIC [id number] 14:37:00 Test Item Value Reference Range Interpretation Comments UA PH DIPSTIC POC (test code = PHUP) 5 5-8 N UA GLU: NEGATIVEKET UA 15 (1+)PH UA 5.0UA NIT NegativePROT UA 15 (TRACE)BL UA NEGATIVEUA LEOPOLDO 1+ (Mod)Time performed: 1435UA PROTEIN DIPSTICK [id number] 14:37:00 Test Item Value Reference Range Interpretation Comments UA PROTEIN DIPSTICK POC (test code 15 (Trace) Neg -15 A = DPROUP) UA GLU: NEGATIVEKET UA 15 (1+)PH UA 5.0UA NIT NegativePROT UA 15 (TRACE)BL UA NEGATIVEUA LEOPOLDO 1+ (Mod)Time performed: 1435UA NITRITE DIPSTICK [id number] 14:37:00 Test Item Value Reference Range Interpretation Comments UA NITRITE DIPSTICK POC (test code = Negative Negative NITUP) UA GLU: NEGATIVEKET UA 15 (1+)PH UA 5.0UA NIT NegativePROT UA 15 (TRACE)BL UA NEGATIVEUA LEOPOLDO 1+ (Mod)Time performed: 1434UA LEUKOCYTE ESTERASE [id number] 14:37:00 Test Item Value Reference Range Interpretation Comments UA LEUKOCYTE ESTERASE POC (test code = 1+ NEGATIVE A LEUUPOC) UA GLU: NEGATIVEKET UA 15 (1+)PH UA 5.0UA NIT NegativePROT UA 15 (TRACE)BL UA NEGATIVEUA ELOPOLDO 1+ (Mod)Time performed: 143
[2022-07-19 09:51] LABS: Urine Blood Negative (Negative); Urine Glucose Negative (Negative); Urine Protein Negative (Negative); Urine Specific Gravity 1.025 (1.005-1.030)
[2022-07-19 10:24] LABS: Urine Specific Gravity/Preg 1.025 (1.005-1.030)
[2022-07-19] MEDS ORDERED: MORPHINE 4 MG/ML SYR ONE (10:53)
[2022-07-19] MEDS ORDERED: ONDANSETRON 4 MG/2 ML VIAL ONE (10:53)
[2022-07-19] MEDS ORDERED: NA CHLORIDE 0.9% 1,000 ML ONE (10:53)
[2022-07-19 11:21] LABS: Absolute Lymphocytes (CBC) 2.8 K/uL (0.7-4.9); Hematocrit 40.6 % (36.0-45.0); Lymphocytes % 33.1 % (15.3-44.8); MPV 8.9 fL (7.6-11.3); RBC Red Blood Cell Count 6.78 M/uL (3.86-4.86)
[2022-07-19 11:33] LABS: Albumin 3.5 g/dL (3.4-5.0); Bilirubin Total 0.8 mg/dL (0.2-1.0); Potassium 4.2 mmol/L (3.5-5.1)
[2022-07-19 11:48] LABS: White Blood Cell Scan OK (OK)
[2022-07-19 11:49] LABS: Anisocytosis 1+; Blood Morphology Comment NOTED (NOT SEEN); Hypochromasia 1+; Platelet Estimate ADEQ
--- NOTE | 2022-07-19 12:11 | RAD REPORT ---
EXAM DESCRIPTION: CT - Abdomen Pelvis W Contrast - 07/19/2022 12:02 pm CLINICAL HISTORY: Abdominal pain COMPARISON: 2016 TECHNIQUE: Computed axial tomography of the abdomen pelvis was obtained. 100 cc Isovue-300 was admin istered intravenously. Oral contrast was not requested which limits evaluation of bowel and appendix All CT scans are performed using dose optimization technique as appropriate and may include automated exposure control or mA/KV adjustment according to patient size. FINDINGS: Fatty liver. Cholecystectomy. Small umbilical hernia Spleen, pancreas, adrenal and kidneys appear unremarkable. Fatty structure lies adjacent to the sigmoid colon with stranding in the adjacent fat. This is compat ible with epiploic appendagitis. Normal appendix IMPRESSION: Epiploic appendagitis sigmoid colon
--- NOTE | 2022-07-19 12:19 | EDPHYS ---
Physician Documentation [facility] Name: Shana Dexter Age: 31 yrs Sex: Female : 1990 Arrival Date: 07/19/2022 Time: 08:51 Bed 19 Private MD: Vi Jeong ED Physician Suresh Collins HPI: 07/19 14:49 This 31 yrs old Female presents to ER via Ambulatory with complaints of Abdominal Pain. kdr 14:49 The patient presents with abdominal pain Patient complains of abdominal pain, kdr suprapubic area, that began yesterday afternoon and was worse last night. Patient denies any urinary pain or burning. She also denies frequency. 14:58 Onset: The symptoms/episode began/occurred acutely. The symptoms do not radiate. kdr Associated signs and symptoms: Pertinent positives: nausea. The symptoms are described as achy, crampy, sharp. Modifying factors: The symptoms are alleviated by nothing, the symptoms are aggravated by movement, touching the area, walking. Severity of pain: At its worst the pain was moderate in the emergency department the pain is unchanged. The patient has not experienced similar symptoms in the past. The patient has not recently seen a physician. 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 - Social history:: Smoking status: Patient denies any tobacco usage or history of. ROS: 14:58 Constitutional: Negative for fever, chills, and weight loss, Eyes: Negative for injury, kdr pain, redness, and discharge, ENT: Negative for injury, pain, and discharge, Neck: Negative for injury, pain, and swelling, Cardiovascular: Negative for chest pain, palpitations, and edema, Respiratory: Negative for shortness of breath, cough, wheezing, and pleuritic chest pain, Back: Negative for injury and pain, : Negative for injury, bleeding, discharge, and swelling, MS/Extremity: Negative for injury and deformity, Skin: Negative for injury, rash, and discoloration, Neuro: Negative for headache, weakness, numbness, tingling, and seizure activity. Psych: Negative for depression, anxiety, suicide ideation, homicidal ideation, and hallucinations, Allergy/Immunology: Negative for hives, rash, and allergies, Endocrine: Negative for neck swelling, polydipsia, polyuria, polyphagia, and marked weight changes, Hematologic/Lymphatic: Negative for swollen nodes, abnormal bleeding, and unusual bruising. 14:58 Abdomen/GI: Positive for abdominal pain, Negative for diarrhea, constipation, abdominal cramps, abdominal distension, anorexia, dysphagia, hematemesis, black/tarry stool, rectal pain, rectal bleeding. Exam: 14:58 Constitutional: This is a well developed, well nourished patient who is awake, alert, kdr and in no acute distress. Head/Face: Normocephalic, atraumatic. Eyes: Pupils equal round and reactive to light, extra-ocular motions intact. Lids and lashes normal. Conjunctiva and sclera are non-icteric and not injected. Cornea within normal limits. Periorbital areas with no swelling, redness, or edema. Neck: Trachea midline, no thyromegaly or masses palpated, and no cervical lymphadenopathy. Supple, full range of motion without nuchal rigidity, or vertebral point tenderness. No Meningismus. Chest/axilla: Normal chest wall appearance and motion. Nontender with no deformity. No lesions are appreciated. Cardiovascular: Regular rate and rhythm with a normal S1 and S2. No gallops, murmurs, or rubs. Normal PMI, no JVD. No pulse deficits. Respiratory: Lungs have equal breath sounds bilaterally, clear to auscultation and percussion. No rales, rhonchi or wheezes noted. No increased work of breathing, no retractions or nasal flaring. Back: No spinal tenderness. No costovertebral tenderness. Full range of motion. Skin: Warm, dry with normal turgor. Normal color with no rashes, no lesions, and no evidence of cellulitis. MS/ Extremity: Pulses equal, no cyanosis. Neurovascular intact. Full, normal range of motion. Neuro: Awake and alert, GCS 15, oriented to person, place, time, and situation. Cranial nerves II-XII grossly intact. Motor strength 5/5 in all extremities. Sensory grossly intact. Cerebellar exam normal. Normal gait. Psych: Awake, alert, with orientation to person, place and time. Behavior, mood, and affect are within normal limits. 14:58 Abdomen/GI: Inspection: abdomen appears normal, obese Bowel sounds: active, all quadrants, Palpation: soft, mild abdominal tenderness, in the suprapubic area. Vital Signs: 09:12 Pulse 86; Resp 16; Temp 98.4(O); Pulse Ox 97% on R/A; Weight 104.33 kg; Height 5 ft. 4 ss in. (162.56 cm); Pain 7/10; 09:17 BP 147 / 107; ss 10:25 BP 148 / 100; Pulse 82; Pulse Ox 100% ; ap3 11:49 BP 144 / 100; Pulse 80; Pulse Ox 99% on R/A; ap3 12:22 BP 149 / 108; Pulse 82; Resp 18; Pulse Ox 98% on R/A; eh3 09:12 Body Mass Index 39.48 (104.33 kg, 162.56 cm) ss MDM: 12:19 Patient medically screened. kdr 14:58 Data reviewed: vital signs, nurses notes, lab test result(s), radiologic studies. kdr Counseling: I had a detailed discussion with the patient and/or guardian regarding: the historical points, exam findings, and any diagnostic results supporting the discharge/admit diagnosis, lab results, radiology results, the need for outpatient follow up. 07/19 09:51 Order name: Urine Dipstick-Ancillary; Complete Time: 12:13 EDWI 07/19 09:51 Order name: Urine --Ancillary (enter results) eb 07/19 10:24 Order name: Urine --Ancillary; Complete Time: 12:13 EDWI 07/19 10:46 Order name: CBC with Diff kdr 07/19 10:46 Order name: Comprehensive Metabolic Panel kdr 07/19 11:22 Order name: CBC with Automated Diff; Complete Time: 12:13 EDWI 07/19 10:46 Order name: CT Abd/Pelvis - IV Contrast Only kdr 07/19 11:33 Order name: Comprehensive Metabolic Panel; Complete Time: 12:13 EDWI 07/19 11:50 Order name: CBC Smear Scan; Complete Time: 12:13 EDWI 07/19 12:12 Order name: CT; Complete Time: 12:13 EDMS Administered Medications: 11:06 Drug: morphine 4 mg Route: IVP; Infused Over: 4 mins; Site: right antecubital; ap3 12:22 Follow up: Response: Pain is decreased eh3 11:06 Drug: Zofran (Ondansetron) 4 mg Route: IVP; Site: right antecubital; ap3 12:22 Follow up: Response: Nausea is decreased eh3 11:06 Drug: NS 0.9% 500 ml Route: IV; Rate: bolus; Site: right antecubital; ap3 12:24 Follow up: IV Status: Completed infusion; IV Intake: 500ml ap3 Disposition Summary: 07/19/22 12:19 Discharge Ordered Location: Home kdr Problem: new kdr Symptoms: have improved kdr Condition: Stable kdr Diagnosis - Abdominal pain, Generalized kdr - Epiploic Appendagitis kdr Followup: kdr - With: Private Physician - When: 2 - 3 days - Reason: If symptoms return, Further diagnostic work-up, Recheck today's complaints, Continuance of care, Re-evaluation by your physician Discharge Instructions: - Discharge Summary Sheet kdr - Abdominal Pain, Adult, [id number] kdr - Epiploic Appendagitis kdr Forms: - Medication Reconciliation Form kdr - Thank You Letter kdr Prescriptions: - Ibuprofen 600 mg Oral Tablet - take 1 tablet by ORAL route every 6 hours As needed take with food; 30 tablet; kdr Refills: 0, Product Selection Permitted - Tramadol 50 mg Oral Tablet - take 1 tablet by ORAL route every 8 hours as needed; 12 tablet; Refills: 0, kdr Product Selection Permitted Signatures: Dispatcher [employer] EDMS Suresh Collins MD MD kdr Monisha Patton RN RN Shana Lyle RN RN [address]sey RN [facility]
--- NOTE | 2022-07-19 12:19 | ER ---
Nurse's Notes [facility] Name: Shana Dexter Age: 31 yrs Sex: Female : 1990 Arrival Date: 07/19/2022 Time: 08:51 Bed 19 Private MD: Vi Jeong Diagnosis: Abdominal pain, Generalized;Epiploic Appendagitis Presentation: 07/19 09:12 Chief complaint: Patient states: suprapubic pain that began yesterday afternoon and ss became worse last night. Denies burning with urination/ frequency. Coronavirus screen: Client denies travel out of the [place] in the last 14 days. Ebola Screen: Patient denies exposure to infectious person. Patient denies travel to an Ebola-affected area in the 21 days before illness onset. Initial Sepsis Screen: Does the patient meet any 2 criteria? No. Patient's initial sepsis screen is negative. Does the patient have a suspected source of infection? No. Patient's initial sepsis screen is negative. Risk Assessment: Do you want to hurt yourself or someone else? Patient reports no desire to harm self or others. Onset of symptoms was July 18, 2022. 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 - Social history:: Smoking status: Patient denies any tobacco usage or history of. Screenin:31 Abuse screen: Denies threats or abuse. Nutritional screening: No deficits noted. ap3 Tuberculosis screening: No symptoms or risk factors identified. Fall Risk None identified. Assessment: 10:30 General: Appears uncomfortable, Behavior is calm, cooperative. Pain: Complains of pain ap3 in suprapubic area, right lower quadrant and left lower quadrant. Pain: Pain began gradually, 1 day ago. Neuro: Level of Consciousness is awake, alert, obeys commands, Oriented to person, place, time, Gait is steady, Speech is normal. Cardiovascular: Patient's skin is warm and dry. Respiratory: Airway is patent Respiratory effort is even, unlabored, Respiratory pattern is regular, symmetrical. GI: Bowel sounds present X 4 quads. Abd is soft. Vital Signs: 09:12 Pulse 86; Resp 16; Temp 98.4(O); Pulse Ox 97% on R/A; Weight 104.33 kg; Height 5 ft. 4 ss in. (162.56 cm); Pain 7/10; 09:17 BP 147 / 107; ss 10:25 BP 148 / 100; Pulse 82; Pulse Ox 100% ; ap3 11:49 BP 144 / 100; Pulse 80; Pulse Ox 99% on R/A; ap3 12:22 BP 149 / 108; Pulse 82; Resp 18; Pulse Ox 98% on R/A; eh3 09:12 Body Mass Index 39.48 (104.33 kg, 162.56 cm) ED Course: 08:51 Patient arrived in ED. am2 08:51 Vi Jeong FNP-C is Private Physician. am2 08:52 Sruesh Collins MD is Attending Physician. kdr 09:14 Triage completed. ss 09:14 Arm band placed on left wrist. ss 10:20 Shana Lyle, DEQUAN is Primary Nurse. ap3 10:31 Patient has correct armband on for positive identification. Bed in low position. Call ap3 light in reach. Side rails up X 1. Adult w/ patient. Pulse ox on. NIBP on. Door closed. Noise minimized. 11:05 Inserted saline lock: 20 gauge in right antecubital area, using aseptic technique. ap3 Blood collected. 12:22 No provider procedures requiring assistance completed. IV discontinued, intact, eh3 bleeding controlled, No redness/swelling at site. Pressure dressing applied. Administered Medications: 11:06 Drug: morphine 4 mg Route: IVP; Infused Over: 4 mins; Site: right antecubital; ap3 12:22 Follow up: Response: Pain is decreased eh3 11:06 Drug: Zofran (Ondansetron) 4 mg Route: IVP; Site: right antecubital; ap3 12:22 Follow up: Response: Nausea is decreased eh3 11:06 Drug: NS 0.9% 500 ml Route: IV; Rate: bolus; Site: right antecubital; ap3 12:24 Follow up: IV Status: Completed infusion; IV Intake: 500ml ap3 Medication: 10:31 VIS not applicable for this client. ap3 Intake: 12:24 IV: 500ml; Total: 500ml. ap3 Outcome: 12:19 Discharge ordered by . kdr 12:22 Discharged to home ambulatory. eh3 12:22 Condition: stable 12:22 Discharge instructions given to patient, Instructed on discharge instructions, follow up and referral plans. medication usage, Demonstrated understanding of instructions, follow-up care, medications, Prescriptions given X 2. 13:03 Patient left the ED. eh3 Signatures: Suresh Collins MD MD kdr Smirch, Shelby RN Shana Carlos Amanda, RN RN ap3 Lindsey Conti RN RN 3
[2022-07-20 02:54] VITALS: TEMP 98.4
[2022-07-20 02:58] VITALS: BP 149/108; O2SAT 98
== END 2022-07-19 13:03 | disposition home or self-care (01) ==
LOC: ER 08:47
DX: R10.84 Generalized abdominal pain (principal); K63.89 Other specified diseases of intestine; I10 Essential (primary) hypertension; E03.9 Hypothyroidism, unspecified; Z88.0 Allergy status to penicillin
CPT/HCPCS: 96361; 85025; 36415; 81025; 81003; 80053; 74177; 96375; 96374; 99284; Q9967; J7030; J2405